=== PATIENT | male | born 1995 | race African-American/Black ===

== ENCOUNTER 2017-03-20 22:58 | Emergency (ER) | payer OTHER ==
[~2017-03-20] VITALS: Ht 210.8 cm; Wt 119.3 kg
[~2017-03-20 22:58] MED LIST: HYDR-79 PO; ONDA8TAB12 PO; RANI150T6 PO
[2017-03-20 23:00] VITALS: BP 167/85
--- NOTE | 2017-03-20 23:56 | PHYS DOC ---
General Chief Complaint: BACK PAIN OR INJURY Stated Complaint: BACK PAIN Time Seen by MD: 23:13 Source: patient Exam Limitations: no limitations Problems: History of Present Illness Initial Comments Patient is a 21-year-old male who comes to the ED complaining of back pain. Patient states that he's been dealing with a lingering back injury for approximately 18 months. He's been following with physical therapy and had a session earlier this week. Patient says that earlier today he was closing a large very heavy gate. He says that as he was doing so he was also twisting his upper body and he felt sudden onset or reaggravation of his right sided mid back pain. Pain is localized to the hypertonic tender paraspinal musculature to the right lateral of the thoracic or lumbar junction. No bony tenderness or palpable deformity no swelling ecchymosis or abrasions or other skin changes. Denies other injury and no trouble breathing no focal weakness. He's tried anti- inflammatories and muscle relaxants in the past however his symptoms remain. Timing/Duration: changing over time, other Severity: moderate Modifying Factors: worse with movement, improves with rest Associated Symptoms: other Allergies: Coded Allergies: No Known Drug Allergies (Unverified , 06/26/16) Past Medical History Medical History: no pertinent history Surgical History: noncontributory Social History Smoker: non-smoker Alcohol: none Drugs: none Review of Systems Constitutional: denies chills, denies diaphoresis, denies fever Respiratory: denies cough, denies shortness of breath Cardiovascular: denies chest pain, denies palpitations Gastrointestinal: denies abdominal pain, denies diarrhea, denies nausea, denies vomiting Genitourinary: denies dysuria, denies frequency, denies hematuria Musculoskeletal: see HPI, denies joint swelling, denies neck pain Psychiatric/Neurological: denies headache, denies numbness, denies paresthesia Hematologic/Lymphatic: denies blood clots, denies easy bleeding, denies easy bruising Physical Exam General Appearance: WD/WN, no apparent distress Ear, Nose, Throat: hearing grossly normal, normal ENT inspection Neck: non-tender, supple Respiratory: normal breath sounds, no respiratory distress Cardiovascular: normal peripheral pulses, regular rate, rhythm Gastrointestinal: non tender, soft Back: no CVA tenderness, no vertebral tenderness, decreased range of motion, muscle spasm Extremities: normal range of motion, non-tender 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 Departure Time of Disposition: 23:54 Disposition: 01 HOME, SELF-CARE Diagnosis: acute on chronic thoracic strain Condition: GOOD Patient Instructions: Thoracic Strain, [id number] Additional Instructions: Activity as tolerated. Heating pad to affected area 20 minutes at a time 4-6 times daily followed by gentle stretching. [id number] Tylenol as needed for baseline discomfort. Prescription: Cyclobenzaprine 10 mg, prednisone 20 mg, take each as directed for 5 days. Consider follow-up with chiropractor or classical osteopathic physician. Follow-up at [facility] next week for recheck. Return to the ED with new or changing symptoms. GIN RAPHAEL DO Mar 20, 2017 23:56
[2017-03-21] MEDS ORDERED: predniSONE 20 MG TABLET PO ONE
[2017-03-21] MEDS ORDERED: KETOROLAC 60 MG/2 ML VIAL. IM ONE
[2017-03-21] MEDS ORDERED: ORPHENADRINE CITRATE 60 MG/2 ML VIAL. IM ONE
== END 2017-03-21 00:20 | disposition home or self-care (01) ==
LOC: ER 22:58
DX: S29.012A Strain of muscle and tendon of back wall of thorax, initial encounter (principal); X50.9XXA Other and unspecified overexertion or strenuous movements or postures, initial encounter; Y93.89 Activity, other specified; Y99.8 Other external cause status; Y92.89 Other specified places as the place of occurrence of the external cause
CPT/HCPCS: 96372; 99284; J1885; J2360; J7512

== ENCOUNTER 2017-03-25 22:57 | Emergency (ER) | payer OTHER ==
[~2017-03-25] VITALS: Ht 185.4 cm; Wt 119.3 kg
--- NOTE | 2017-03-25 23:44 | PHYS DOC ---
Past History Past Medical History: No Pertinent History Past Surgical History: No Surgical History Alcohol Use: None Drug Use: None Adult General Chief Complaint Chief Complaint: TESTICULAR PAIN OR INJURY HPI HPI Patient is a 21 year old male who presents with complaint of right-sided testicular pain. Patient states that he has been having pain off and on for the past 3-4 days, however starting at around 5:00 this evening the patient has been having constant pain to the right testicle. Patient states that the pain feels like sharp and throbbing. Patient currently rates his pain as 8 out of 10. Patient states that the pain radiates up into his lower abdomen. Patient denies nausea, vomiting, fevers. Patient is monogamous and denies any penile discharge or dysuria. The patient is concerned about his symptoms being related to a possible testicular torsion which is why he came to the emergency department for evaluation. Patient has not been able to find anything to help relieve his pain. Patient does state that the pain worsens when testicle is touched as well as the spermatic cord. Review of Systems Review of Systems Constitutional: Denies fever or chills [] Eyes: Denies change in visual acuity, redness, or eye pain [] HENT: Denies nasal congestion or sore throat [] Respiratory: Denies cough or shortness of breath [] Cardiovascular: Denies chest pain or edema [] GI: Denies abdominal pain, nausea, vomiting, bloody stools or diarrhea [] : Right testicular pain, denies dysuria or hematuria [] Musculoskeletal: Denies back pain or joint pain [] Integument: Denies rash or skin lesions [] Neurologic: Denies headache, focal weakness or sensory changes [] Current Medications Current Medications Current Medications Medications (Trade) Dose Ordered Sig/[facility] Start Time Stop Time Status Last Admin Dose Admin Acetaminophen/ Hydrocodone Bitart (Lortab 5/325) 1 tab 1X ONCE 03/25/17 23:45 03/25/17 23:46 UNV Allergies Allergies Allergies Coded Allergies Type Severity Reaction Last Updated Verified No Known Drug Allergies 06/26/16 No Physical Exam Physical Exam Constitutional: Alert, afebrile, appears in mild to moderate discomfort. [] HENT: Normocephalic, atraumatic, bilateral external ears normal, oropharynx moist, no oral exudates, nose normal. [] Eyes: PERRLA, EOMI, conjunctiva normal, no discharge. [] Neck: Normal range of motion, no tenderness, supple, no stridor. [] Cardiovascular:Heart rate regular rhythm, no murmur [] Lungs & Thorax: Bilateral breath sounds clear to auscultation [] Abdomen: Bowel sounds normal, soft, no tenderness, no masses, no pulsatile masses. : Uncircumcised, no visible scrotal swelling, tenderness palpation along testicle in posterior spermatic cord, no palpable inguinal masses, no visible discharge at urethral meatus [] Skin: Warm, dry, no erythema, no rash. [] Back: No tenderness, no CVA tenderness. [] Extremities: No tenderness, no cyanosis, no clubbing, ROM intact, no edema. [] Neurologic: Alert and oriented X 3, normal motor function, normal sensory function, no focal deficits noted. [] Current Patient Data Vital Signs Vital Signs Date Time Temp Pulse Resp B/P (MAP) Pulse Ox O2 Delivery O2 Flow Rate FiO2 03/25/17 23:12 108 20 97 Room Air EKG EKG Not performed [] Radiology/Procedures Radiology/[place] [address] IMAGING REPORT Signed PATIENT: LIBIA HUNTLEY ACCOUNT: [id number] : 1995 LOCATION: ER AGE: 21 SEX: M EXAM STATUS: REG ER ORD. PHYSICIAN: AYANA HERRERA MD REASON: right testicular pain, rule out testicular torsion PROCEDURE: TESTICULAR/SCROTUM INDICATION: Testicular pain. COMPARISON: None. TECHNIQUE: Grayscale, color and spectral doppler ultrasound images obtained of the scrotum. FINDINGS: Right Testicle: 35 x 25 x 19 mm. Vascular flow is identified. Left Testicle: 32 x 24 x 16 mm. Vascular flow is identified. 4 mm left epididymal cyst. IMPRESSION: 1. Vascular flow is identified to the bilateral testicles. Electronically signed by: Rey Ferguson MD (03/26/2017 12:49 AM) [facility] DICTATED AND SIGNED BY: REY FERGUSON MD DATE: 03/26/17 0047 CC: AYANA HERRERA MD; PRAKASH VEGA DO, MPH ~ [] Course & Med Decision Making Course & Med Decision Making Pertinent Labs and Imaging studies reviewed. (See chart for details) Patient was treated with [place] in the emergency department. Patient's exam shows no evidence of inguinal hernia and patient's ultrasound showed normal blood flow and both testicles. UA showed no evidence of infection. Etiology of patient's testicular pain is unclear at this time though it does not appear to be acutely surgical. Patient will be started on Naprosyn and [place] for treatment with recommended follow-up in 2 days a primary doctor for reevaluation. Advised return emergency department for any worsening symptoms. Patient voiced understanding and in agreement with treatment plan. Dragon Disclaimer Dragon Disclaimer This chart was dictated in whole or in part using Voice Recognition software in a busy, high-work load, and often noisy Emergency Department environment. It may contain unintended and wholly unrecognized errors or omissions. Departure Departure: Impression: Primary Impression: Testicular pain, right Disposition: 01 HOME, SELF-CARE Condition: IMPROVED Referrals: PRAKASH VEGA DO, MPH (PCP) Patient Instructions: Testicular Problems and Self-Exam Additional Instructions: Follow-up with your primary doctor in 2-3 days for reevaluation. Return to the emergency department for any worsening symptoms. Scripts Hydrocodone Bit/Acetaminophen (NORCO 5-325 TABLET) 1 Each Tablet 1-2 TAB PO Q4-6HRS Y for PAIN, #20 TAB Prov: AYANA HERRERA MD 03/26/17 Naproxen (NAPROSYN) 500 Mg Tablet 1 TAB PO BID Y for INFLAMMATION, #20 TAB 0 Refills Prov: AYANA HERRERA MD 03/26/17 AYANA HERRERA MD Mar 25, 2017 23:44
[2017-03-26] MEDS ORDERED: HYDR-971 PO (00:46)
[2017-03-26] MEDS ORDERED: NAPR500T PO (00:46)
--- NOTE | 2017-03-26 00:52 | RAD ---
INDICATION: Testicular pain. COMPARISON: None. TECHNIQUE: Grayscale, color and spectral doppler ultrasound images obtained of the scrotum. FINDINGS: Right Testicle: 35 x 25 x 19 mm. Vascular flow is identified. Left Testicle: 32 x 24 x 16 mm. Vascular flow is identified. 4 mm left epididymal cyst. IMPRESSION: 1. Vascular flow is identified to the bilateral testicles. Electronically signed by: Brigido Hackett MD (03/26/2017 12:49 AM) [facility]
[2017-03-26] MEDS ORDERED: NAPROXEN 500 MG TABLET ONE (01:19)
[2017-03-26 01:20] VITALS: BP 137/70
[2017-03-26] MEDS ORDERED: NAPROXEN 500 MG TABLET PO ONE (01:30)
[2017-03-26] MEDS ORDERED: HYDROcodone/APAP 5/325MG 1 TAB TABLET PO ONE ×2 (01:30)
[2017-03-26 03:46] LABS: BILIRUBIN,URINE NEG (NEG); CLARITY,URINE CLEAR; GLUCOSE,URINE NEG (NEG)
[2017-03-26 03:47] LABS: BACTERIA,URINE 0 /HPF (0-FEW); NITRITE,URINE NEG (NEG); RBC,URINE 0 /HPF (0-2); SQUAMOUS EPITHELIAL CELL,UR OCC /LPF; UROBILINOGEN,URINE 0.2 mg/dL (0.2 mg/dL); WBC,URINE RARE /HPF (0-4)
[2017-03-26 03:48] LABS: COLOR,URINE YELLOW
== END 2017-03-26 01:24 | disposition home or self-care (01) ==
LOC: ER 22:57
DX: N50.811 Right testicular pain (principal)
CPT/HCPCS: 76870; 81001; 99284-25; 99285-25

== ENCOUNTER 2017-05-05 14:44 | Emergency (ER) | payer OTHER ==
[~2017-05-05] VITALS: Ht 180.3 cm; Wt 124.7 kg
[~2017-05-05 14:44] MED LIST changes: +HYDR-971 PO; +NAPR500T PO
[2017-05-05] MEDS ORDERED: HYDROcodone/APAP 5/325MG 1 TAB TABLET PO ONE (15:15)
[2017-05-05 16:00] LABS: BILIRUBIN,URINE NEG (NEG); CLARITY,URINE CLEAR; COLOR,URINE YELLOW; GLUCOSE,URINE NEG (NEG); NITRITE,URINE NEG (NEG); UROBILINOGEN,URINE 0.2 mg/dL (0.2 mg/dL)
[2017-05-05 16:01] LABS: BACTERIA,URINE 0 /HPF (0-FEW); RBC,URINE 0 /HPF (0-2); WBC,URINE 0 /HPF (0-4)
[2017-05-05 16:03] VITALS: BP 123/73
--- NOTE | 2017-05-05 16:26 | PHYS DOC ---
Past History Past Medical History: No Pertinent History Past Surgical History: No Surgical History Alcohol Use: None Drug Use: None Adult General Chief Complaint Chief Complaint: TESTICULAR PAIN OR INJURY HPI HPI 21-year-old male presenting to the emergency department today with left testicular pain. The pain is moderate intermittent sharp and without alleviating factors. He reports mild swelling as well. He denies dysuria polyuria. He is sexually active but denies recent exposure to sexually transmitted infections. He denies penile discharge or drainage. He denies rashes or ulcerations. Review of systems is negative for chest pain shortness of breath abdominal pain nausea vomiting. All other review of systems is negative unless otherwise noted in history of present illness. ED course: 21-year-old male presenting to the emergency department today with left testicular pain. Vital signs unremarkable other than mild tachycardia likely secondary to pain. Urinalysis and ultrasound obtained. Pertinent physical examination findings showed the testicle to be in normal orientation. Nontender testicle. Normal cremasteric reflex. No ulcerations or drainage present. No blue dot. Nontender epididymis. Unremarkable ultrasound and urinalysis. I did offer the patient oral doxycycline for possible epididymitis. The patient was then discharged home in stable condition to follow up with their primary care physician over the next 2-3 days. They were to return if their symptoms worsened or if they were concerned for any reason. Kyex-ko-aizu discharge instructions and return precautions were given. Patient's questions were answered to their satisfaction. Patient is comfortable plan. Review of Systems Review of Systems SEE ABOVE Current Medications Current Medications Current Medications Medications (Trade) Dose Ordered Sig/[facility] Start Time Stop Time Status Last Admin Dose Admin Acetaminophen/ Hydrocodone Bitart (Lortab 5/325) 2 tab 1X ONCE 05/05/17 15:15 05/05/17 15:16 DC 05/05/17 15:14 2 TAB Allergies Allergies Allergies Coded Allergies Type Severity Reaction Last Updated Verified No Known Drug Allergies 06/26/16 No Physical Exam Physical Exam Constitutional: Well developed, well nourished, no acute distress, non-toxic appearance. [] HENT: Normocephalic, atraumatic, bilateral external ears normal, oropharynx moist, no oral exudates, nose normal. [] Eyes: PERRLA, EOMI, conjunctiva normal, no discharge. [] Neck: Normal range of motion, no tenderness, supple, no stridor. [] Cardiovascular:Heart rate regular rhythm, no murmur [] Lungs & Thorax: Bilateral breath sounds clear to auscultation [] Abdomen: Bowel sounds normal, soft, no tenderness, no masses, no pulsatile masses. [] : See above Skin: Warm, dry, no erythema, no rash. [] Back: No tenderness, no CVA tenderness. [] Extremities: No tenderness, no cyanosis, no clubbing, ROM intact, no edema. [] Neurologic: Alert and oriented X 3, normal motor function, normal sensory function, no focal deficits noted. [] Psychologic: Affect normal, judgement normal, mood normal. [] Current Patient Data Vital Signs Vital Signs Date Time Temp Pulse Resp B/P (MAP) Pulse Ox O2 Delivery O2 Flow Rate FiO2 05/05/17 16:03 94 12 123/73 (90) 96 Room Air 05/05/17 14:55 97.6 Lab Results Laboratory Tests Test 05/05/17 15:30 Urine Collection Type Void Urine Color Yellow Urine Clarity Clear Urine pH 7.0 Urine Specific [place] 1.015 Urine Protein Neg (NEG-TRACE) Urine Glucose (UA) Neg mg/dL (NEG) Urine Ketones (Stick) Neg mg/dL (NEG) Urine Blood Neg (NEG) Urine Nitrite Neg (NEG) Urine Bilirubin Neg (NEG) Urine Urobilinogen Dipstick 0.2 mg/dL (0.2 mg/dL) Urine Leukocyte Esterase Neg (NEG) Urine RBC 0 /HPF (0-2) Urine WBC 0 /HPF (0-4) Urine Squamous Epithelial Cells None /LPF Urine Bacteria 0 /HPF (0-FEW) EKG EKG [] Radiology/Procedures Radiology/Procedures [] Course & Med Decision Making Course & Med Decision Making Pertinent Labs and Imaging studies reviewed. (See chart for details) [] Dragon Disclaimer Dragon Disclaimer This chart was dictated in whole or in part using Voice Recognition software in a busy, high-work load, and often noisy Emergency Department environment. It may contain unintended and wholly unrecognized errors or omissions. Departure Departure: Impression: Primary Impression: Testicular pain, left Disposition: 01 HOME, SELF-CARE Condition: STABLE Referrals: PRAKASH VEGA DO, MPH (PCP) Patient Instructions: Testicular Problems and Self-Exam Additional Instructions: Thank you for allowing us to participate in your care today. Followup with your primary care physician in 3 days if your symptoms do not improve. Call your Primary Doctor tomorrow and inform them of your visit today. If you do not have a primary care provider you can ask for a list of our primary care providers. Return to the emergency department you have any new or concerning findings. This should be evaluated by the primary care physician and any necessary consulting services for continued management within a few days after discharge. Return to emergency room if you have any new or concerning symptoms including but not limited to fever, chills, nausea, vomiting, intractable pain, any new rashes, chest pain, shortness of air, uncontrolled bleeding, difficulty breathing, and/or vision loss. Scripts Doxycycline Hyclate (DOXYCYCLINE HYCLATE) 100 Mg Capsule 1 CAP PO BID, #14 CAP Prov: DONI SMITH MD 05/05/17 DONI SMITH MD May 05, 2017 16:26
--- NOTE | 2017-05-05 17:08 | RAD ---
INDICATION: Right testicle pain with no known injury. TECHNIQUE: Grayscale, color-flow, and spectral waveform analysis was performed. FINDINGS: Testicles are homogeneous in echotexture with normal color flow that is not increased or decreased. The right testicle measures 3.6 x 1.9 x 2.7 cm and the left 2.9 x 1.8 x 2.6 cm. There is a left epididymal cyst. There is no evidence of an epididymitis. There is no hydrocele or varicocele. IMPRESSION: 1. No evidence of testicular torsion or mass. 2. Left epididymal cyst measures 5 mm. Electronically signed by: Rolf Valencia MD (05/05/2017 5:04 PM) [email or web address]
[2017-05-05] MEDS ORDERED: DOXY100C2 PO (17:43)
== END 2017-05-05 17:45 | disposition home or self-care (01) ==
LOC: ER 14:44
DX: N50.812 Left testicular pain (principal)
CPT/HCPCS: 76870; 81001; 99285-25

== ENCOUNTER 2018-03-04 14:04 | Emergency (ER) | payer OTHER ==
[~2018-03-04] VITALS: Ht 180.3 cm; Wt 127.0 kg
[~2018-03-04 14:04] MED LIST changes: +DOXY100C2 PO; +NAPR-683 PO; -NAPR500T PO; +RANI150T21 PO; -RANI150T6 PO
--- NOTE | 2018-03-04 14:34 | PHYS DOC ---
Past History Past Medical History: No Pertinent History Past Surgical History: Other Alcohol Use: None Drug Use: None Adult General Chief Complaint Chief Complaint: WRIST PAIN HPI HPI The patient is a pleasant 22-year-old male who presents for evaluation of a left wrist injury. He states that he was at the gym weightlifting and was pulling a 45 pound circular weight off of a bar that was elevated with his right arm when he lost control of the weights and it fell onto his left wrist which was on the ground. He initially thought it was more of a minor injury and tried to do a pushup but then felt like something in his wrist or forearm moved and felt a pop and increasing pain. He is alert and oriented 4, calm, appears to be no distress. He was able to drive himself to the emergency department but states that his is also driving here to meet him. He denies any other injuries. Review of Systems Review of Systems Constitutional: Denies fever or chills [] Eyes: Denies change in visual acuity, redness, or eye pain [] HENT: Denies nasal congestion or sore throat [] Respiratory: Denies cough or shortness of breath [] Cardiovascular: No additional information not addressed in HPI [] GI: Denies abdominal pain, nausea, vomiting, bloody stools or diarrhea [] : Denies dysuria or hematuria [] Musculoskeletal: Denies back pain [] left wrist injury Integument: Denies rash or skin lesions [] Neurologic: Denies headache, focal weakness or sensory changes [] Endocrine: Denies polyuria or polydipsia [] All other systems were reviewed and found to be within normal limits, except as documented in this note. Current Medications Current Medications Current Medications Medications (Trade) Dose Ordered Sig/[facility] Start Time Stop Time Status Last Admin Dose Admin Acetaminophen/ Hydrocodone Bitart (Lortab 7.5/325) 1 tab 1X ONCE 03/04/18 14:45 03/04/18 14:46 Allergies Allergies Allergies Coded Allergies Type Severity Reaction Last Updated Verified No Known Drug Allergies 06/26/16 No Physical Exam Physical Exam Constitutional: Well developed, well nourished, no acute distress, non-toxic appearance. [] HENT: Normocephalic, atraumatic, bilateral external ears normal, oropharynx moist, no oral exudates, nose normal. [] Eyes: PERRLA, EOMI, conjunctiva normal, no discharge. [] Neck: Normal range of motion, no tenderness, supple, no stridor. [] Cardiovascular:Heart rate regular rhythm, no murmur [] Lungs & Thorax: Bilateral breath sounds clear to auscultation [] Abdomen: Bowel sounds normal, soft, no tenderness, no masses, no pulsatile masses. [] Skin: Warm, dry, no erythema, no rash. [] Back: No tenderness, no CVA tenderness. [] Extremities: no cyanosis, no clubbing, ROM intact, no edema. [] left distal forearm/wrist ttp, no deformity seen, ROM in supination/pronation as well as flexion/extension at wrist limited slightly by pain, no dislocation, distally normal cap refill, sensation, and strength Neurologic: Alert and oriented X 3, normal motor function, normal sensory function, no focal deficits noted. [] Psychologic: Affect normal, judgement normal, mood normal. [] Current Patient Data Vital Signs Vital Signs Date Time Temp Pulse Resp B/P (MAP) Pulse Ox O2 Delivery O2 Flow Rate FiO2 03/04/18 14:13 97.8 95 16 100 Room Air EKG EKG [] Radiology/Procedures Radiology/Procedures [][place] [address] IMAGING REPORT Signed PATIENT: LIBIA HUNTLEY ACCOUNT: [id number] : 1995 LOCATION: ER AGE: 22 SEX: M EXAM STATUS: REG ER ORD. PHYSICIAN: MONCHO SANCHEZ DO REASON: left distal forearm pain PROCEDURE: FOREARM LEFT Indications: Lifting injury today. Pain. 2 view left forearm study: No acute fracture or dislocation or osteolytic process is seen. No significant left elbow joint effusion is seen. Three-view left wrist study: No acute fracture or dislocation or osteolytic process is seen. Three-view left hand study: No acute fracture or dislocation or osteolytic process is seen. IMPRESSION: No acute fracture. Electronically signed by: Victor Manuel Gustafson MD (03/04/2018 2:56 PM) [email or web address] DICTATED AND SIGNED BY: VICTOR MANUEL GUSTAFSON MD DATE: 03/04/18 2688 CC: MONCHO SANCHEZ DO; PRAKASH VEGA DO, MPH ~ [address] [address] IMAGING REPORT Signed PATIENT: LIBIA HUNTLEY ACCOUNT: [id number] : 1995 LOCATION: ER AGE: 22 SEX: M EXAM STATUS: REG ER ORD. PHYSICIAN: MONCHO SANCHEZ DO REASON: left distal forearm pain PROCEDURE: HAND LEFT 3V Indications: Lifting injury today. Pain. 2 view left forearm study: No acute fracture or dislocation or osteolytic process is seen. No significant left elbow joint effusion is seen. Three-view left wrist study: No acute fracture or dislocation or osteolytic process is seen. Three-view left hand study: No acute fracture or dislocation or osteolytic process is seen. IMPRESSION: No acute fracture. Electronically signed by: Victor Manuel Gustafson MD (03/04/2018 2:56 PM) [email or web address] DICTATED AND SIGNED BY: VICTOR MANUEL GUSTAFSON MD DATE: 03/04/18 1454 CC: MNOCHO SANCHEZ DO; PRAKASH VEGA DO, MPH [address] [address] IMAGING REPORT Signed PATIENT: LIBIA HUNTLEY ACCOUNT: [id number] : 1995 LOCATION: ER AGE: 22 SEX: M EXAM STATUS: REG ER ORD. PHYSICIAN: MONCHO SANCHEZ DO REASON: left distal forearm pain PROCEDURE: WRIST 3V LEFT Indications: Lifting injury today. Pain. 2 view left forearm study: No acute fracture or dislocation or osteolytic process is seen. No significant left elbow joint effusion is seen. Three-view left wrist study: No acute fracture or dislocation or osteolytic process is seen. Three-view left hand study: No acute fracture or dislocation or osteolytic process is seen. IMPRESSION: No acute fracture. Electronically signed by: Victor Manuel Gustafson MD (03/04/2018 2:56 PM) [email or web address] DICTATED AND SIGNED BY: VICTOR MANUEL GUSTAFSON MD DATE: 03/04/18 1454 CC: MONCHO SANCHEZ DO; PRAKASH VEGA DO, MPH ~ Course & Med Decision Making Course & Med Decision Making Pertinent Labs and Imaging studies reviewed. (See chart for details) @1500 - x-rays performed today did not show any acute fracture. Splint applied to wrist for stability and comfort. Advised patient to limit any lifting over 10 pounds with the right upper extremity until his symptoms have resolved. He is stable for discharge this time. Dragon Disclaimer Dragon Disclaimer This electronic medical record was generated, in whole or in part, using a voice recognition dictation system. Departure Departure: Impression: Primary Impression: Contusion of wrist, left Disposition: 01 HOME, SELF-CARE Condition: STABLE Referrals: PRAKASH VEGA DO, MPH (PCP) Patient Instructions: Contusion Additional Instructions: No lifting over 10 pounds with left arm until your symptoms resolve. Keep the splint in place. Return to the emergency department for new or worsening symptoms. Follow-up with your doctor in the next 2-3 days. Scripts Hydrocodone Bit/Acetaminophen (NORCO 5-325 TABLET) 1 Each Tablet 1-2 TAB PO Q4-6HRS, #15 TAB Prov: MONCHO SANCHEZ DO 03/04/18 MONCHO SANCHEZ DO Mar 04, 2018 14:34
[2018-03-04] MEDS ORDERED: HYDROcodone/APAP 7.5/325MG 1 TAB TABLET PO ONE (14:45)
--- NOTE | 2018-03-04 15:00 | RAD ---
Indications: Lifting injury today. Pain. 2 view left forearm study: No acute fracture or dislocation or osteolytic process is seen. No significant left elbow joint effusion is seen. Three-view left wrist study: No acute fracture or dislocation or osteolytic process is seen. Three-view left hand study: No acute fracture or dislocation or osteolytic process is seen. IMPRESSION: No acute fracture. Electronically signed by: David Gustafson MD (03/04/2018 2:56 PM) [email or web address]
[2018-03-04] MEDS ORDERED: HYDR-971 PO (15:07)
[2018-03-04 15:15] VITALS: BP 121/81
== END 2018-03-04 15:20 | disposition home or self-care (01) ==
LOC: ER 14:04
DX: S60.212A Contusion of left wrist, initial encounter (principal); W20.8XXA Other cause of strike by thrown, projected or falling object, initial encounter; Y93.B3 Activity, free weights; Y99.8 Other external cause status; Y92.89 Other specified places as the place of occurrence of the external cause
CPT/HCPCS: 29125; 73090; 73110; 73130; 99284

== ENCOUNTER 2018-06-02 13:41 | Emergency (ER) | payer OTHER ==
[~2018-06-02] VITALS: Ht 182.9 cm; Wt 122.5 kg
[2018-06-02 13:41] VITALS: BP 148/91
--- NOTE | 2018-06-02 14:29 | RAD ---
Chest, 2 views, 06/02/2018: HISTORY: Cough, fever The heart size is normal. The lungs are clear. There is no evidence of pleural fluid. IMPRESSION: No significant abnormality is detected. Electronically signed by: Kamlesh Villa MD (06/02/2018 2:25 PM) [facility]
[2018-06-02] MEDS ORDERED: ONDANSETRON ODT 4 MG TAB.RAPDIS PO ONE (14:30)
[2018-06-02] MEDS ORDERED: IBUPROFEN 600 MG TABLET. PO ONE (14:30)
--- NOTE | 2018-06-02 15:04 | PHYS DOC ---
Past History Past Medical History: No Pertinent History Past Surgical History: No Surgical History Alcohol Use: None Drug Use: None Adult General Chief Complaint Chief Complaint: FLU SYMPTOM HPI HPI 22-year-old male presents with 4 day history of cough, congestion, sore throat, and muscle aches. The patient's symptoms started with a mild sore throat. He then developed congestion and a cough. He is not coughing anything up. Today he has diffuse body aches and has been nauseous. He had one episode of vomiting. He denies diarrhea. He denies dysuria or urinary frequency. He came in today because he has a new infant at home and does not want to get the baby sick. Review of Systems Review of Systems Constitutional: Denies fever or chills [] Eyes: Denies change in visual acuity, redness, or eye pain [] HENT: Denies nasal congestion or sore throat [] Respiratory: Denies cough or shortness of breath [] Cardiovascular: No additional information not addressed in HPI [] GI: Denies abdominal pain, nausea, vomiting, bloody stools or diarrhea [] : Denies dysuria or hematuria [] Musculoskeletal: Denies back pain or joint pain [] Integument: Denies rash or skin lesions [] Neurologic: Denies headache, focal weakness or sensory changes [] Endocrine: Denies polyuria or polydipsia [] All other systems were reviewed and found to be within normal limits, except as documented in this note. Current Medications Current Medications Current Medications Medications (Trade) Dose Ordered Sig/Maddy Start Time Stop Time Status Last Admin Dose Admin Ibuprofen (Motrin) 600 mg 1X ONCE 06/02/18 14:30 06/02/18 14:31 DC 06/02/18 14:29 600 MG Ondansetron HCl (Zofran Odt) 4 mg 1X ONCE 06/02/18 14:30 06/02/18 14:31 DC 06/02/18 14:29 4 MG Allergies Allergies Allergies Coded Allergies Type Severity Reaction Last Updated Verified No Known Drug Allergies 06/26/16 No Physical Exam Physical Exam Constitutional: Well developed, well nourished, no acute distress, non-toxic appearance. [] HENT: Normocephalic, atraumatic, bilateral external ears normal, oropharynx moist, no oral exudates, nose normal. [] Eyes: PERRLA, EOMI, conjunctiva normal, no discharge. [] Neck: Normal range of motion, no tenderness, supple, no stridor. [] Cardiovascular:Heart rate regular rhythm, no murmur [] Lungs & Thorax: Bilateral breath sounds clear to auscultation [] Abdomen: Bowel sounds normal, soft, no tenderness, no masses, no pulsatile masses. [] Skin: Warm, dry, no erythema, no rash. [] Back: No tenderness, no CVA tenderness. [] Extremities: No tenderness, no cyanosis, no clubbing, ROM intact, no edema. [] Neurologic: Alert and oriented X 3, normal motor function, normal sensory function, no focal deficits noted. [] Psychologic: Affect normal, judgement normal, mood normal. [] Current Patient Data Vital Signs Vital Signs Date Time Temp Pulse Resp B/P (MAP) Pulse Ox O2 Delivery O2 Flow Rate FiO2 06/02/18 13:41 98.1 104 20 99 Room Air Lab Results Laboratory Tests Test 06/02/18 14:01 Group A Streptococcus Rapid Negative (NEGATIVE) EKG EKG [] Radiology/Procedures Radiology/Procedures [] Course & Med Decision Making Course & Med Decision Making Pertinent Labs and Imaging studies reviewed. (See chart for details) The patient's rapid strep is negative. His chest x-ray is unremarkable. With the patient just has a viral illness. I will discharge him with Zofran and advised that he minimize contact with the baby, wash his hands frequently, and get some rest. [] Dragon Disclaimer Dragon Disclaimer This electronic medical record was generated, in whole or in part, using a voice recognition dictation system. Departure Departure: Referrals: PRAKSAH VEGA DO, MPH (PCP) LAURA ELAM DO Jun 02, 2018 15:04
[2018-06-02] MEDS ORDERED: ONDA4TAB10 SL (15:07)
== END 2018-06-02 15:14 | disposition home or self-care (01) ==
LOC: ER 13:41
DX: B34.9 Viral infection, unspecified (principal)
CPT/HCPCS: 71046; 87070; 87880; 99285; Q0162

== ENCOUNTER 2019-01-22 08:38 | Emergency (ER) | payer OTHER ==
[~2019-01-22] VITALS: Ht 182.9 cm; Wt 118.8 kg
[~2019-01-22 08:38] MED LIST changes: +HYDR-1179 PO; +HYDR-3165 PO; -HYDR-79 PO; -HYDR-971 PO; +ONDA4TAB10 SL
[2019-01-22 08:48] VITALS: BP 133/83
[2019-01-22] MEDS ORDERED: ALBU2.5V8 INH (09:04)
[2019-01-22] MEDS ORDERED: PRED50TA PO (09:04)
--- NOTE | 2019-01-22 09:05 | PHYS DOC ---
Past History Past Medical History: No Pertinent History Past Surgical History: No Surgical History Alcohol Use: None Drug Use: None Adult General Chief Complaint Chief Complaint: SHORTNESS OF BREATH [facility] HPI Patient is a 23 year old M who presents with shortness of breath. He states this started this morning after he got off work. He reports wheezing and a cough that is productive with green mucus. He states that 1 week ago he had URI that has since resolved. He denies fever, chills, allergies, or a history of asthma. Review of Systems Review of Systems Constitutional: Denies fever or chills [] Eyes: Denies change in visual acuity, redness, or eye pain [] HENT: Denies nasal congestion or sore throat [] Respiratory: Reports cough or shortness of breath [] Cardiovascular: No additional information not addressed in HPI [] GI: Denies abdominal pain, nausea, vomiting, bloody stools or diarrhea [] : Denies dysuria or hematuria [] Musculoskeletal: Denies back pain or joint pain [] Integument: Denies rash or skin lesions [] Neurologic: Denies headache, focal weakness or sensory changes [] Endocrine: Denies polyuria or polydipsia [] All other systems were reviewed and found to be within normal limits, except as documented in this note. Allergies Allergies Allergies Coded Allergies Type Severity Reaction Last Updated Verified No Known Drug Allergies 06/26/16 No Physical Exam Physical Exam Constitutional: Well developed, well nourished, no acute distress, non-toxic appearance. [] HENT: Normocephalic, atraumatic, bilateral external ears normal, oropharynx moist, no oral exudates, nose normal. [] Eyes: PERRLA, EOMI, conjunctiva normal, no discharge. [] Neck: Normal range of motion, no tenderness, supple, no stridor. [] Cardiovascular:Heart rate regular rhythm, no murmur [] Lungs & Thorax: Bilateral breath sounds clear to auscultation [] Abdomen: Bowel sounds normal, soft, no tenderness, no masses, no pulsatile masses. [] Skin: Warm, dry, no erythema, no rash. [] Back: No tenderness, no CVA tenderness. [] Extremities: No tenderness, no cyanosis, no clubbing, ROM intact, no edema. [] Neurologic: Alert and oriented X 3, normal motor function, normal sensory function, no focal deficits noted. [] Psychologic: Affect normal, judgement normal, mood normal. [] EKG EKG [] Radiology/Procedures Radiology/Procedures [] Course & Med Decision Making Course & Med Decision Making Pertinent Labs and Imaging studies reviewed. (See chart for details) []Likely reactive cough chest x-ray negative prednisone and albuterol were given patient is well-appearing Dragon Disclaimer Dragon Disclaimer This electronic medical record was generated, in whole or in part, using a voice recognition dictation system. Departure Departure: Impression: Primary Impression: Bronchitis Disposition: HOME, SELF-CARE Condition: STABLE Referrals: PRAKASH TOLEDO PA-C (PCP) Scripts Albuterol Sulfate (PROAIR HFA INHALER) 8.5 Gm Hfa.aer.ad 1 PUFF INH PRN Q6HRS PRN for SHORTNESS OF BREATH, #1 INHALER 0 Refills Prov: WANDER PHILLIPS MD 01/22/19 Prednisone (PREDNISONE) 50 Mg Tablet 1 TAB PO DAILY for cough, #5 TAB Prov: WANDER PHILLIPS MD 01/22/19 WANDER PHILLIPS MD January 22, 2019 09:05
--- NOTE | 2019-01-22 09:23 | RAD ---
EXAM: AP View of the chest DATE: 01/22/2019 9:03 AM INDICATION: Cough, shortness of breath, wheezing COMPARISON: 06/02/2018 FINDINGS: The heart is not enlarged. Mediastinal and hilar contours are normal. No focal parenchymal airspace opacity. No pleural effusion or pneumothorax. IMPRESSION: 1. No radiographic evidence for acute cardiopulmonary process. Electronically signed by: Dakota Verdin MD (01/22/2019 9:19 AM) [id number]
== END 2019-01-22 09:26 | disposition home or self-care (01) ==
LOC: ER 08:38
DX: J40 Bronchitis, not specified as acute or chronic (principal)
CPT/HCPCS: 71045; 99283

== ENCOUNTER 2019-03-18 19:09 | Emergency (ER) | payer OTHER ==
[~2019-03-18] VITALS: Ht 335.3 cm; Wt 118.8 kg
[~2019-03-18 19:09] MED LIST changes: +ALBU2.5V8 INH; +PRED50TA PO; +RANI-376 PO; -RANI150T21 PO
[2019-03-18] MEDS ORDERED: KETOROLAC 15 MG/ML VIAL. IV ONE (19:30)
[2019-03-18] MEDS ORDERED: KETOROLAC 15 MG/ML VIAL. ONE (19:38)
[2019-03-18] MEDS: KETOROLAC 15 MG/ML VIAL. IM ONE (19:44)
--- NOTE | 2019-03-18 19:49 | PHYS DOC ---
Past History Past Medical History: Other Additional Past Medical Histor: undergoing a workup for anemia and chronic pain issues Past Surgical History: No Surgical History Smoking: Non-smoker Alcohol Use: None Drug Use: None Adult General Chief Complaint Chief Complaint: TESTICULAR PAIN OR INJURY HPI HPI Patient is a 23-year-old male presents with right testicular pain that started approximately an hour prior to arrival. Denies any trauma. Has been having intermittent pain for the past several days. Pain is moderate. Denies any swelling. Denies any urethral discharge or dysuria. No fever. Previous workup for this discomfort has been inconclusive and the pain result on its own. Patient due to other chronic pain issues took a tramadol an hour prior to the onset of pain and reports that the tramadol does not seem to be helping with his current pain. Reports that the pain is moderate to severe and describes it as being "kicked in the nuts."[] Review of Systems Review of Systems Constitutional: Denies fever or chills [] Eyes: Denies change in visual acuity, redness, or eye pain [] HENT: Denies nasal congestion or sore throat [] Respiratory: Denies cough or shortness of breath [] Cardiovascular: No chest pain or palpitations[] GI: Denies abdominal pain, nausea, vomiting, bloody stools or diarrhea [] : Denies dysuria or hematuria [] Musculoskeletal: Denies back pain or joint pain [] Integument: Denies rash or skin lesions [] Neurologic: Denies headache, focal weakness or sensory changes [] Endocrine: Denies polyuria or polydipsia [] All other systems were reviewed and found to be within normal limits, except as documented in this note. Current Medications Current Medications Current Medications Medications (Trade) Dose Ordered Sig/[facility] Start Time Stop Time Status Last Admin Dose Admin Ketorolac Tromethamine (Toradol 15mg Vial) 15 mg 1X ONCE 03/18/19 19:30 03/18/19 19:31 UNV Allergies Allergies Allergies Coded Allergies Type Severity Reaction Last Updated Verified No Known Drug Allergies 06/26/16 No Physical Exam Physical Exam Constitutional: Well developed, well nourished, no acute distress, non-toxic appearance. [] HENT: Normocephalic, atraumatic, bilateral external ears normal, oropharynx moist, no oral exudates, nose normal. [] Eyes: PERRLA, EOMI, conjunctiva normal, no discharge. [] Neck: Normal range of motion, no tenderness, supple, no stridor. [] Cardiovascular:Heart rate regular rhythm, no murmur [] Lungs & Thorax: Bilateral breath sounds clear to auscultation [] Abdomen: Bowel sounds normal, soft, no tenderness, no masses, no pulsatile masses. : Normal male with bilaterally descended testes. Diffuse tenderness of the right testicle. Normal lie of the testicle. No hernia on either side. Circumcised. No urethral drainage. No skin lesions noted.[] Skin: Warm, dry, no erythema, no rash. [] Back: No tenderness, no CVA tenderness. [] Extremities: No tenderness, no cyanosis, no clubbing, ROM intact, no edema. [] Neurologic: Alert and oriented X 3, normal motor function, normal sensory function, no focal deficits noted. [] Psychologic: Affect normal, judgement normal, mood normal. [] Current Patient Data Vital Signs Vital Signs Date Time Temp Pulse Resp B/P (MAP) Pulse Ox O2 Delivery O2 Flow Rate FiO2 03/18/19 19:17 98.2 97 14 96 Room Air EKG EKG [] Radiology/Procedures Radiology/Procedures PROCEDURE: TESTICULAR/SCROTUM Scrotal ultrasound 03/18/2019 CLINICAL HISTORY: Right scrotal pain. TECHNIQUE: Using a combination of real-time ultrasound imaging and color-flow and pulse Doppler imaging techniques, duplex evaluation of the scrotal sac and its contents was performed. Multiple images were obtained. FINDINGS: Both testicles are within normal limits in size and echogenicity. The right testicle measures 3.6 x 2.6 x 2.1 cm in longitudinal, transverse, and AP dimensions. The left testicle measures 3.1 x 2.9 x 1.5 cm in size. No focal abnormality of either testicle is seen. Normal color-flow and pulse Doppler imaging to both testicles is noted. The right epididymal head is normal in size and echogenicity. The left epididymal head is normal in size. A 5 mm cyst is seen within the left epididymal head. No hydrocele is seen. A small varicocele is seen inferior to the right testicle. This measures 2 cm in greatest diameter. IMPRESSION: 1. 5 mm cyst is seen involving the left epididymal head. 2. Small right varicocele. 3. Otherwise negative study.[] Course & Med Decision Making Course & Med Decision Making Pertinent Labs and Imaging studies reviewed. (See chart for details) ED course: Patient arrived, was placed in bed, and tolerated exam well. He was transported to and from radiology with any complications. After return of laboratory and imaging studies, these were discussed with the patient who voiced understanding. All questions were answered. He was discharged in improved condition with his driving. Medical decision making: There is no evidence of a torsion, urinary tract infection, hernia, nor other significant intra-abdominal or scrotal pathology.[] Dragon Disclaimer Dragon Disclaimer This electronic medical record was generated, in whole or in part, using a voice recognition dictation system. Departure Departure: Impression: Primary Impression: Testicular pain, right Disposition: HOME, SELF-CARE Condition: IMPROVED Referrals: PRAKSAH TOLEDO PA-C (PCP) Follow-up in 2 days [facility] Call tomorrow to set up follow-up appointment Patient Instructions: Testicular Problems and Self-Exam Additional Instructions: Drink plenty of fluids. Follow-up with your regular doctor in 2 days. Call the urology group tomorrow to set follow-up appointment. Return to the ER if worsening pain, blood in the urine, fever of more than 101, or any other concerns. Scripts Doxycycline Hyclate (DOXYCYCLINE HYCLATE) 100 Mg Tablet 1 TAB PO BID for , #20 TAB Prov: BOZENA GILL DO 03/18/19 Hydrocodone Bit/Acetaminophen (NORCO 5-325 TABLET) 1 Each Tablet 1-2 TAB PO Q4-6HRS for severe pain, #20 TAB Prov: BOZENA GILL DO 03/18/19 Meloxicam (MELOXICAM) 7.5 Mg Tablet 7.5 MG PO DAILY for PAIN, #20 TAB Prov: BOZENA GILL DO 03/18/19 BOZENA GILL DO Mar 18, 2019 19:49
[2019-03-18 20:01] LABS: BACTERIA,URINE 0 /HPF (0-FEW); BILIRUBIN,URINE NEG (NEG); CLARITY,URINE CLEAR; COLOR,URINE YELLOW; GLUCOSE,URINE NEG (NEG); NITRITE,URINE NEG (NEG); RBC,URINE 0 /HPF (0-2); SQUAMOUS EPITHELIAL CELL,UR OCC /LPF; UROBILINOGEN,URINE 0.2 mg/dL (0.2 mg/dL); WBC,URINE OCC /HPF (0-4)
--- NOTE | 2019-03-18 20:53 | RAD ---
Scrotal ultrasound 03/18/2019 CLINICAL HISTORY: Right scrotal pain. TECHNIQUE: Using a combination of real-time ultrasound imaging and color-flow and pulse Doppler imaging techniques, duplex evaluation of the scrotal sac and its contents was performed. Multiple images were obtained. FINDINGS: Both testicles are within normal limits in size and echogenicity. The right testicle measures 3.6 x 2.6 x 2.1 cm in longitudinal, transverse, and AP dimensions. The left testicle measures 3.1 x 2.9 x 1.5 cm in size. No focal abnormality of either testicle is seen. Normal color-flow and pulse Doppler imaging to both testicles is noted. The right epididymal head is normal in size and echogenicity. The left epididymal head is normal in size. A 5 mm cyst is seen within the left epididymal head. No hydrocele is seen. A small varicocele is seen inferior to the right testicle. This measures 2 cm in greatest diameter. IMPRESSION: 1. 5 mm cyst is seen involving the left epididymal head. 2. Small right varicocele. 3. Otherwise negative study. Electronically signed by: Korey Maradiaga MD (03/18/2019 8:50 PM) [facility]
[2019-03-18] MEDS ORDERED: MELO7.5T29 PO (21:05)
[2019-03-18] MEDS ORDERED: DOXY100T PO (21:05)
[2019-03-18] MEDS ORDERED: HYDR-3165 PO (21:05)
[2019-03-18 21:28] VITALS: BP 118/81
[2019-03-18] MEDS: HYDROcodone/APAP 5/325MG 1 TAB TABLET PO ONE (21:30)
== END 2019-03-18 21:33 | disposition home or self-care (01) ==
LOC: ER 19:09
DX: N50.811 Right testicular pain (principal); I86.1 Scrotal varices; N50.3 Cyst of epididymis; G89.29 Other chronic pain; Z86.2 Personal history of diseases of the blood and blood-forming organs and certain disorders involving the immune mechanism
CPT/HCPCS: 76870; 81001; 87491; 87591; 96372; 99285; J1885

== ENCOUNTER 2019-04-08 16:37 | Emergency (ER) | payer OTHER ==
[~2019-04-08] VITALS: Ht 335.3 cm; Wt 128.2 kg
[~2019-04-08 16:37] MED LIST changes: +DOXY100T PO; +MELO7.5T29 PO
[2019-04-08 16:51] VITALS: BP 141/83
[2019-04-08] MEDS ORDERED: KETOROLAC 15 MG/ML VIAL. IV ONE (17:15)
--- NOTE | 2019-04-08 17:19 | PHYS DOC ---
Past History Past Medical History: No Pertinent History Additional Past Medical Histor: undergoing a workup for anemia and chronic pain issues (BOZENA GILL DO) Past Surgical History: No Surgical History (BOZENA GILL DO) Smoking: Non-smoker Alcohol Use: None Drug Use: None (BOZENA GILL DO) Adult General Chief Complaint Chief Complaint: TESTICULAR PAIN OR INJURY HPI HPI Patient is a 23-year-old male presents with right testicular pain for the past 4 hours. He has previous history of this without any specific diagnosis being reached. No previous history of torsion. No dysuria. No hematuria. No trauma. Nothing seems to make the symptoms better or worse. Patient had taken one of his usual tramadol tablets for other issues around the time of onset of this pain without any improvement in this discomfort. Pain is moderate to severe in intensity.[] (BOZENA GILL DO) Review of Systems Review of Systems Constitutional: Denies fever or chills [] Eyes: Denies change in visual acuity, redness, or eye pain [] HENT: Denies nasal congestion or sore throat [] Respiratory: Denies cough or shortness of breath [] Cardiovascular: No chest pain or palpitations[] GI: Denies abdominal pain, nausea, vomiting, bloody stools or diarrhea [] : See history of present illness[] Musculoskeletal: Denies back pain or joint pain [] Integument: Denies rash or skin lesions [] Neurologic: Denies headache, focal weakness or sensory changes [] Endocrine: Denies polyuria or polydipsia [] All other systems were reviewed and found to be within normal limits, except as documented in this note. (BOZENA GILL DO) Current Medications Current Medications Current Medications Medications (Trade) Dose Ordered Sig/Maddy Start Time Stop Time Status Last Admin Dose Admin Ketorolac Tromethamine (Toradol 15mg Vial) 15 mg 1X ONCE 04/08/19 17:15 04/08/19 17:16 UNV (BOZENA GILL DO) Allergies Allergies Allergies Coded Allergies Type Severity Reaction Last Updated Verified No Known Drug Allergies 06/26/16 No (BOZENA GILL DO) Physical Exam Physical Exam Constitutional: Well developed, well nourished, mild discomfort, non-toxic appearance. [] HENT: Normocephalic, atraumatic, bilateral external ears normal, oropharynx moist, no oral exudates, nose normal. [] Eyes: PERRLA, EOMI, conjunctiva normal, no discharge. [] Neck: Normal range of motion, no tenderness, supple, no stridor. [] Cardiovascular:Heart rate regular rhythm, no murmur [] Lungs & Thorax: Bilateral breath sounds clear to auscultation [] Abdomen: Bowel sounds normal, soft, no tenderness, no masses, no pulsatile masses. : Normal male with bilateral descended testes. Tenderness to palpation along the posterior aspect of both left and right testicle. Normal cremasteric reflex. No hernia. No urethral discharge. He is circumcised. [] Skin: Warm, dry, no erythema, no rash. [] Back: No tenderness, no CVA tenderness. [] Extremities: No tenderness, no cyanosis, no clubbing, ROM intact, no edema. [] Neurologic: Alert and oriented X 3, normal motor function, normal sensory function, no focal deficits noted. [] Psychologic: Affect normal, judgement normal, mood normal. [] ([facility] Current Patient Data Vital Signs Vital Signs Date Time Temp Pulse Resp B/P (MAP) Pulse Ox O2 Delivery O2 Flow Rate FiO2 04/08/19 16:51 98.2 108 16 98 Room Air ([facility]) EKG EKG [] ([facility] Radiology/Procedures Radiology/Procedures PROCEDURE: TESTICULAR/SCROTUM INDICATION: Testicular pain. COMPARISON: March 18, 2019 TECHNIQUE: Grayscale, color and spectral doppler ultrasound images obtained of the scrotum. FINDINGS: Right Testicle: 38 x 27 x 19 mm. Vascular flow is identified. Left Testicle: 28 x 26 x 16 mm. Vascular flow is identified. There is a couple of small epididymal cyst measuring up to 5 mm on the left and 1 mm on the right. IMPRESSION: 1. Vascular flow is identified to the bilateral testicles. 2. Epididymal cysts.[] ([facility] Impressions: PROCEDURE: TESTICULAR/SCROTUM INDICATION: Testicular pain. COMPARISON: March 18, 2019 TECHNIQUE: Grayscale, color and spectral doppler ultrasound images obtained of the scrotum. FINDINGS: Right Testicle: 38 x 27 x 19 mm. Vascular flow is identified. Left Testicle: 28 x 26 x 16 mm. Vascular flow is identified. There is a couple of small epididymal cyst measuring up to 5 mm on the left and 1 mm on the right. IMPRESSION: 1. Vascular flow is identified to the bilateral testicles. 2. Epididymal cysts. Electronically signed by: Brigido Hackett MD (04/08/2019 5:53 PM) [facility] (CIARAN RONQUILLO Jr. DO) Course & Med Decision Making Course & Med Decision Making Pertinent Labs and Imaging studies reviewed. (See chart for details) ED course: Patient arrived, was placed in bed, tolerated exam well. He was transported to ultrasound without any complications. Pain medication was adm inistered. Patient care endorsed to the nighttime physician at 1800 with laboratory testing pending.[] (BOZENA GILL DO) Dragon Disclaimer Dragon Disclaimer This electronic medical record was generated, in whole or in part, using a voice recognition dictation system. (BOZENA GILL DO) Departure Departure: Impression: Primary Impression: Testicular pain Disposition: HOME, SELF-CARE Condition: STABLE Referrals: QUIANA POSEY (PCP) Patient Instructions: Testicular Problems and Self-Exam Scripts Hydrocodone Bit/Acetaminophen (NORCO 5-325 TABLET) 1 Each Tablet 1 TAB PO PRN Q6HRS PRN for PAIN, #12 TAB 0 Refills Prov: CIARAN RONQUILLO Jr., DO 04/08/19 BOZENA GILL DO Apr 08, 2019 17:19 CIARAN RONQUILLO Jr., DO Apr 08, 2019 18:35
[2019-04-08 17:42] LABS: BACTERIA,URINE 0 /HPF (0-FEW); BILIRUBIN,URINE NEG (NEG); CLARITY,URINE CLEAR; COLOR,URINE YELLOW; GLUCOSE,URINE NEG (NEG); NITRITE,URINE NEG (NEG); RBC,URINE 0 /HPF (0-2); SQUAMOUS EPITHELIAL CELL,UR OCC /LPF; UROBILINOGEN,URINE 0.2 mg/dL (0.2 mg/dL); WBC,URINE 0 /HPF (0-4)
--- NOTE | 2019-04-08 17:56 | RAD ---
INDICATION: Testicular pain. COMPARISON: March 18, 2019 TECHNIQUE: Grayscale, color and spectral doppler ultrasound images obtained of the scrotum. FINDINGS: Right Testicle: 38 x 27 x 19 mm. Vascular flow is identified. Left Testicle: 28 x 26 x 16 mm. Vascular flow is identified. There is a couple of small epididymal cyst measuring up to 5 mm on the left and 1 mm on the right. IMPRESSION: 1. Vascular flow is identified to the bilateral testicles. 2. Epididymal cysts. Electronically signed by: Brigido Hackett MD (04/08/2019 5:53 PM) [facility]
[2019-04-08] MEDS ORDERED: MORPHINE SULFATE 4 MG/ML DISP.SYRIN. IV ONE (18:00)
[2019-04-08 18:10] LABS: BASO # 0.1 x10^3/uL (0.0-0.2); BASO % 1 % (0-3); EOS # 0.2 x10^3/uL (0.0-0.7); EOS % 3 % (0-3); HEMATOCRIT 49.3 % (39.0-53.0); HEMOGLOBIN 16.1 g/dL (13.0-17.5); LYMPH # 2.6 x10^3/uL (1.0-4.8); LYMPH % 37 % (24-48); MEAN CORPUSCULAR HEMOGLOBIN 26 pg (25-35); MEAN CORPUSCULAR HGB CONC 33 g/dL (31-37); MEAN CORPUSCULAR VOLUME 78 fL (79-100); MONO # 0.6 x10^3/uL (0.0-1.1); MONO % 9 % (0-9); NEUT # 3.6 x10^3uL (1.8-7.7); NEUT % 50 % (31-73); PLATELET COUNT 275 x10^3/uL (140-400); RED BLOOD COUNT 6.29 x10^6/uL (4.30-5.70); WHITE BLOOD COUNT 7.1 x10^3/uL (4.0-11.0)
[2019-04-08 18:20] LABS: CALCIUM 9.4 mg/dL (8.5-10.1); GFR 110.2; POTASSIUM 4.4 mmol/L (3.5-5.1)
[2019-04-08] MEDS ORDERED: HYDR-3165 PO (18:34)
== END 2019-04-08 18:39 | disposition home or self-care (01) ==
LOC: ER 16:37
DX: N50.811 Right testicular pain (principal); N50.3 Cyst of epididymis; G89.29 Other chronic pain; Z86.2 Personal history of diseases of the blood and blood-forming organs and certain disorders involving the immune mechanism
CPT/HCPCS: 36415; 76870; 80048; 81001; 85025; 87491; 87591; 96374; 96375; 99285; J1885; J2270

== ENCOUNTER 2019-06-30 11:45 | Emergency (ER) | payer OTHER ==
[~2019-06-30] VITALS: Ht 182.9 cm; Wt 134.0 kg
[2019-06-30 11:55] VITALS: BP 150/71
[2019-06-30] MEDS ORDERED: HYDR-3165 PO (12:21)
--- NOTE | 2019-06-30 12:21 | PHYS DOC ---
Past History Past Medical History: COPD, Other Additional Past Medical Histor: undergoing a workup for anemia and chronic pain issues Past Surgical History: No Surgical History Smoking: Non-smoker Alcohol Use: None Drug Use: None Adult General Chief Complaint Chief Complaint: BACK INJURY HPI HPI 23-year-old male presents with report of acute on chronic back pain primarily to the left lumbar region. Patient reports he initially had problems with his back after falling off of a [employer] in 2014. Patient reports he has had significant imaging for his issues and has been on several different types of medication. Patient reports he presents to the ER today for help with pain control until he can follow with his doctors. Patient denies recent trauma. Denies rash. Denies loss of bowel or bladder. Review of Systems Review of Systems Constitutional: Denies fever or chills Eyes: Denies redness or eye pain HENT: Denies nasal congestion or sore throat Respiratory: Denies cough or shortness of breath Cardiovascular: Denies chest pain or palpitations GI: Denies abdominal pain, nausea, or vomiting : Denies dysuria or hematuria Musculoskeletal: Reports back pain with radiation down left leg Integument: Denies rash or skin lesions Neurologic: Denies headache, focal weakness or sensory changes Complete systems were reviewed and found to be within normal limits, except as documented in this note. Allergies Allergies Allergies Coded Allergies Type Severity Reaction Last Updated Verified No Known Drug Allergies 06/26/16 No Physical Exam Physical Exam Constitutional: Well developed, well nourished, no acute distress, non-toxic appearance HENT: Normocephalic, atraumatic, oropharynx moist Eyes: PERRL, EOMI, conjunctiva normal, no discharge Neck: Normal range of motion, no tenderness, supple Cardiovascular: Heart rate normal, regular rhythm Lungs & Thorax: Bilateral breath sounds clear to auscultation, no wheezing Abdomen: Soft, no tenderness Skin: Warm, dry, no erythema, no rash Back: Left paraspinal lumbar tenderness, no CVA tenderness Extremities: No tenderness, ROM intact, no edema Neurologic: Alert and oriented X 3, normal motor function, normal sensory function, no focal deficits noted Psychologic: Affect normal, judgement normal Current Patient Data Vital Signs Vital Signs Date Time Temp Pulse Resp B/P (MAP) Pulse Ox O2 Delivery O2 Flow Rate FiO2 06/30/19 11:55 98.2 88 18 96 Room Air EKG EKG [] Radiology/Procedures Radiology/Procedures [] Course & Med Decision Making Course & Med Decision Making Patient presents with history of present illness and physical exam consistent for acute on chronic low back pain. Symptomatic treatment provided. KTR[facility]s report obtained without findings consistent for recently prescribed narcotic pain medication. Patient stable for discharge with outpatient follow-up with PCP. Discussed findings and plan with patient and family, who acknowledge understanding and agreement. Dragon Disclaimer Dragon Disclaimer This electronic medical record was generated, in whole or in part, using a voice recognition dictation system. Departure Departure: Impression: Primary Impression: Acute exacerbation of chronic low back pain Disposition: HOME, SELF-CARE Condition: STABLE Referrals: QUIANA PSOEY (PCP) Patient Instructions: Chronic Back Pain Scripts Hydrocodone Bit/Acetaminophen (NORCO 5-325 TABLET) 1 Each Tablet 0.5-1 TAB PO Q6HRS PRN for PAIN, #12 TAB Prov: KARYN RUDD DO 06/30/19 KARYN RUDD DO Jun 30, 2019 12:21
[2019-06-30] MEDS ORDERED: DEXAMETHASONE 4 MG TABLET ONE (12:24)
[2019-06-30] MEDS ORDERED: ORPHENADRINE CITRATE 60 MG/2 ML VIAL. ONE (12:24)
[2019-06-30] MEDS ORDERED: HYDROcodone/APAP 5/325MG 1 TAB TABLET ONE (12:24)
[2019-06-30] MEDS ORDERED: ORPHENADRINE CITRATE 60 MG/2 ML VIAL. IM ONE (12:45)
[2019-06-30] MEDS ORDERED: HYDROcodone/APAP 5/325MG 1 TAB TABLET PO ONE (12:45)
[2019-06-30] MEDS ORDERED: DEXAMETHASONE 4 MG TABLET PO ONE (12:45)
== END 2019-06-30 12:35 | disposition home or self-care (01) ==
LOC: ER 11:45
DX: G89.29 Other chronic pain (principal); M54.5 Low back pain; J44.9 Chronic obstructive pulmonary disease, unspecified
CPT/HCPCS: 96372; 99283; J2360; J8540

== ENCOUNTER 2019-07-18 05:06 | Emergency (ER) | payer OTHER ==
[~2019-07-18] VITALS: Ht 182.9 cm; Wt 122.5 kg
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
[2019-07-18] MEDS ORDERED: MORPHINE SULFATE 10 MG/ML SYRINGE. SQ ONE ×2 (05:45→07:00)
[2019-07-18] MEDS ORDERED: CONTRAST GIVEN MC PRN (06:00)
[2019-07-18] MEDS ORDERED: IOHEXOL 300 MG/ML 75 ML VIAL. IV ONE (06:00)
[2019-07-18 06:08] LABS: BASO # 0.1 x10^3/uL (0.0-0.2); BASO % 1 % (0-3); EOS % 1 % (0-3); HEMATOCRIT 47.9 % (39.0-53.0); HEMOGLOBIN 15.6 g/dL (13.0-17.5); LYMPH # 1.6 x10^3/uL (1.0-4.8); LYMPH % 27 % (24-48); MEAN CORPUSCULAR HEMOGLOBIN 26 pg (25-35); MEAN CORPUSCULAR HGB CONC 33 g/dL (31-37); MEAN CORPUSCULAR VOLUME 79 fL (79-100); MONO # 0.5 x10^3/uL (0.0-1.1); MONO % 8 % (0-9); NEUT # 3.8 x10^3uL (1.8-7.7); NEUT % 64 % (31-73); PLATELET COUNT 244 x10^3/uL (140-400); RED CELL DISTRIBUTION WIDTH 13.9 % (11.5-14.5); WHITE BLOOD COUNT 5.9 x10^3/uL (4.0-11.0)
[2019-07-18 06:15] LABS: CALCIUM 8.6 mg/dL (8.5-10.1); CREATININE 0.9 mg/dL (0.7-1.3); GFR 124.4
[2019-07-18 06:17] LABS: AMPHETAMINE/METHAMPHETAMINE NEG (NEG); BARBITURATES NEG (NEG); BENZODIAZEPINES NEG (NEG); CANNABINOIDS NEG (NEG); COCAINE NEG (NEG); METHADONE NEG (NEG); OPIATES NEG (NEG); PHENCYCLIDINE NEG (NEG)
[2019-07-18 06:20] LABS: BACTERIA,URINE 0 /HPF (0-FEW); BILIRUBIN,URINE NEG (NEG); CLARITY,URINE CLEAR; COLOR,URINE YELLOW; GLUCOSE,URINE NEG (NEG); NITRITE,URINE NEG (NEG); RBC,URINE 0 /HPF (0-2); SQUAMOUS EPITHELIAL CELL,UR OCC /LPF; UROBILINOGEN,URINE 0.2 mg/dL (0.2 mg/dL)
--- NOTE | 2019-07-18 06:36 | RAD ---
CT lumbar spine with contrast History: Increasing pain recent epidural injection Axial helical images of the lumbar spine were obtained after the administration of 75 mm IV Omni 300 contrast. Axial, coronal and sagittal reconstruction was performed. Findings: The vertebral bodies are aligned. There is no loss of vertebral body stature. Evaluation of the central canal is limited without contrast. There is moderate narrowing of the L3-L4 neuroforamen on the right with loss of fat around the exiting nerve root. There does not appear as severe central stenosis. No abnormal fluid collections. There is no abnormal enhancement. Impression: Right neuroforaminal stenosis at L3-L4. No acute findings. End impression PQRS Compliance Statement: One or more of the following individualized dose reduction techniques were utilized for this examination: 1. Automated exposure control 2. Adjustment of the mA and/or kV according to patient size 3. Use of iterative reconstruction technique Electronically signed by: Naresh Pruitt III, MD (07/18/2019 6:33 AM) [facility]
[2019-07-18] MEDS ORDERED: HYDR-1179 PO ×2 (06:48→07:17)
[2019-07-18 08:00] VITALS: BP 141/85
== END 2019-07-18 08:00 | disposition home or self-care (01) ==
LOC: ER 05:06
DX: G89.29 Other chronic pain (principal); M54.5 Low back pain; M53.3 Sacrococcygeal disorders, not elsewhere classified; M48.062 Spinal stenosis, lumbar region with neurogenic claudication; J44.9 Chronic obstructive pulmonary disease, unspecified
CPT/HCPCS: 36415; 72132; 80048; 80307; 81001; 85025; 85610; 85730; 96372; 96374; 99285; J2060; J2270; Q9967

== ENCOUNTER 2019-08-21 18:24 | Emergency (ER) | payer OTHER ==
[2019-08-21 18:32] VITALS: BP 139/90
[2019-08-21] MEDS ORDERED: PRED20TA PO (18:59)
--- NOTE | 2019-08-21 19:00 | PHYS DOC ---
Past History Past Medical History: COPD, Sciatica, Other Additional Past Medical Histor: undergoing a workup for anemia and chronic pain issues Past Surgical History: No Surgical History Smoking: Non-smoker Alcohol Use: None Drug Use: None Adult General Chief Complaint Chief Complaint: BACK PAIN - NO INJURY HPI HPI Patient is a 23-year-old male who presents to the emergency department for evaluation. He states he has had ongoing back problems for the past 4 years, and reports a flare of his chronic back pain over the past 3 days. He reports pain in his right lower lumbar paraspinal area, with radiation down his right leg. He denies any incontinence, saddle anesthesia, or weakness, although does report some lateral paresthesias in his right lateral thigh. He went to an urgent care a few days ago and received a prescription for gabapentin, which he has been taking along with his tramadol Flexeril without improvement in his symptoms. Movement seems to worsen his pain. There are no alleviating factors to his symptoms. Review of Systems Review of Systems Constitutional: Denies fever or chills [] HENT: Denies nasal congestion or sore throat [] Respiratory: Denies cough or shortness of breath [] GI: Denies abdominal pain, nausea, vomiting, bloody stools or diarrhea [] : Denies dysuria or hematuria [] Musculoskeletal: Denies neck or upper back pain or joint pain [] Integument: Denies rash or skin lesions [] Neurologic: Denies headache, focal weakness or sensory changes [] Allergies Allergies Allergies Coded Allergies Type Severity Reaction Last Updated Verified No Known Drug Allergies 08/21/19 No Physical Exam Physical Exam PHYSICAL EXAM: CONSTITUTIONAL: Well developed, well nourished HEAD: normocephalic, atraumatic EENT: PERRL, EOMI. Conjunctivae normal color, sclerae non-icteric; moist mucous membranes. NECK: Supple, non-tender; no meningismus. LUNGS: Lungs CTA, breathing even and unlabored. Normal air movement. HEART: Regular rate and rhythm, no murmur CHEST: No deformity; non-tender ABDOMEN: The abdomen is soft, and non-tender, no masses or bruits. EXTREM: Normal ROM; no deformity, no calf tenderness. Normal pulses palpable in all extremities. There is no pedal edema. SKIN: No rash; no diaphoresis NEURO: Alert; normal speech and cognition; CN's grossly intact; strength grossly intact without focal deficit. Distal sensation is normal. There is no foot drop. Perineal sensation is normal. Patellar reflexes are 1+ bilaterally. Straight leg raise is positive on the right. BACK: No CVA TTP. There is tenderness to palpation in the right paraspinal muscles of the mid lower lumbar spine, there is no midline vertebral tenderness to palpation to the thoracic or lumbar spine. Current Patient Data Vital Signs Vital Signs Date Time Temp Pulse Resp B/P (MAP) Pulse Ox O2 Delivery O2 Flow Rate FiO2 08/21/19 18:32 97.9 99 18 99 Room Air EKG EKG [] Radiology/Procedures Radiology/Procedures [] Course & Med Decision Making Course & Med Decision Making I discussed adding a steroid to the patient's pain medication, using heating pad, continuing Flexeril, which she has at home, tramadol and gabapentin as needed, and further outpatient follow-up. An MRI would be more diagnostic at this point if necessary, and it does not appear to be emergent at this time. He states he has had a prior back injury in the , but has had no new injuries. Dragon Disclaimer Dragon Disclaimer This electronic medical record was generated, in whole or in part, using a voice recognition dictation system. Departure Departure: Impression: Primary Impression: Sciatica Additional Impression: Low back pain Disposition: 01 HOME, SELF-CARE Condition: STABLE Referrals: PCP,UNKNOWN (PCP) Patient Instructions: Lumbosacral Strain, Sciatica Additional Instructions: Ibuprofen 400-600 mg every 6 hours may help improve your symptoms. Applying a heating pad to the affected area may help improve your symptoms. Scripts Prednisone (PREDNISONE) 20 Mg Tablet 40 MG PO DAILY for - for 5 Days, #10 TAB Prov: IMTIAZ VILLALOBOS MD 08/21/19 Problem Qualifiers IMTIAZ VILLALOBOS MD Aug 21, 2019 18:59
[2019-08-22] MEDS ORDERED: HYDR-1179 PO (19:27)
== END 2019-08-21 19:00 | disposition home or self-care (01) ==
LOC: ER 18:24
DX: M54.41 Lumbago with sciatica, right side (principal); G89.29 Other chronic pain; J44.9 Chronic obstructive pulmonary disease, unspecified
CPT/HCPCS: 99283

== ENCOUNTER 2019-08-22 18:42 | Emergency (ER) | payer OTHER ==
[~2019-08-22 18:42] MED LIST changes: +PRED20TA PO
--- NOTE | 2019-08-22 18:44 | PHYS DOC ---
Past History Past Medical History: COPD, Sciatica, Other Additional Past Medical Histor: undergoing a workup for anemia and chronic pain issues Past Surgical History: No Surgical History Smoking: Non-smoker Alcohol Use: None Drug Use: None Adult General Chief Complaint Chief Complaint: ".. I know I got some problems with my back.. sciatica... but the pain is worse tonight.. and the meds they gave me at [facility] are not cutting it.. I ve already had MRI.. and know I got some disc dz at L4L5.. .. and I am already on prednisone... And Flexeril... .. I am just miserable to night.. 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 Patient has been following at [facility] for his low back pain. MRI approximate 1 month ago showed disc disease at L4 and L5. Patient denies any new trauma. Patient denies any fever or chills. Patient denies any history cancer. Patient denies any history immunosuppression. Patient denies problems with defecation or urination. Patient localizes his pain Lumbar region and radiates down sciatic nerves. Straight leg lift exacerbates pain. There is no midline tenderness. Patient also has medical history of sickle cell trait and bianca thalassemia. Review of Systems Review of Systems Constitutional: Denies fever or chills [] Eyes: Denies change in visual acuity, redness, or eye pain [] HENT: Denies nasal congestion or sore throat [] Respiratory: Denies cough or shortness of breath [] Cardiovascular: No additional information not addressed in [facility] [] GI: Denies abdominal pain, nausea, vomiting, bloody stools or diarrhea [] : Denies dysuria or hematuria [] Musculoskeletal: Complalints of Lumbar back pain and sciatica pain. Integument: Denies rash or skin lesions [] Neurologic: Denies headache, focal weakness or sensory changes [] Endocrine: Denies polyuria or polydipsia [] All other systems were reviewed and found to be within normal limits, except as documented in this note. Family History Family History Noncontributory Current Medications Current Medications See nursing for home medications Allergies Allergies Allergies Coded Allergies Type Severity Reaction Last Updated Verified No Known Drug Allergies 08/21/19 No Physical Exam Physical Exam Constitutional: Well developed, well nourished, moderate acute distress, non- toxic appearance. [] HENT: Normocephalic, atraumatic, bilateral external ears normal, oropharynx moist, no oral exudates, nose normal. [] Eyes: PERRLA, EOMI, conjunctiva normal, no discharge. [] Neck: Normal range of motion, no tenderness, supple, no stridor. [] Cardiovascular:Heart rate regular rhythm, no murmur [] Lungs & Thorax: Bilateral breath sounds clear to auscultation [] Abdomen: Bowel sounds normal, soft, no tenderness, no masses, no pulsatile masses. [] No saddle loss reported. Skin: Warm, dry, no erythema, no rash. [] Back: Para lumbar muscle tenderness, no CVA tenderness. [] Straight. Leg lift exacerbates his lumbar pain. Extremities: No tenderness, no cyanosis, no clubbing, ROM intact, no edema. [] Neurologic: Alert and oriented X 3, normal motor function, normal sensory function, no focal deficits noted. [] Psychologic: Affect normal, judgement normal, mood normal. [] EKG EKG [] Radiology/Procedures Radiology/Procedures [] Course & Med Decision Making Course & Med Decision Making Pertinent Labs and Imaging studies reviewed. (See chart for details) Patient take meds as previous directed. Patient take Tylenol and ibuprofen. For marked pain may take Vicoprofen up 4 times a day. Keep follow-up with [facility]. Return if any concerns. [] Dragon Disclaimer Dragon Disclaimer This electronic medical record was generated, in whole or in part, using a voice recognition dictation system. Departure Departure: Disposition: 01 HOME/RESIDENCE PRIOR TO ADM Condition: STABLE Referrals: PCP,UNKNOWN (PCP) Scripts Hydrocodone/Ibuprofen (HYDROCODONE-IBUPROFEN 7.5-200 ) 1 Each Tablet 2 TAB PO PRN Q6HRS PRN for PAIN, #30 TAB 0 Refills Prov: ZEINAB SAMPSON MD 08/22/19 Katlyn Disclaimer This chart was dictated in whole or in part using Voice Recognition software in a busy, high-work load, and often noisy Emergency Department environment. It may contain unintended and wholly unrecognized errors or omissions. Dragon Disclaimer This chart was dictated in whole or in part using Voice Recognition software in a busy, high-work load, and often noisy Emergency Department environment. It may contain unintended and wholly unrecognized errors or omissions. ZEINAB SAMPSON MD Aug 22, 2019 18:44
[2019-08-22 19:02] VITALS: BP 151/115
[2019-08-22] MEDS ORDERED: HYDR-1179 PO (19:27)
[2019-08-22] MEDS ORDERED: MORPHINE SULFATE 10 MG/ML SYRINGE. SQ ONE (19:30)
[2019-08-22] MEDS ORDERED: methylPREDNISolone ACETATE 40 MG/ML VIAL. IM ONE (19:30)
[2019-08-22] MEDS ORDERED: KETOROLAC 60 MG/2 ML VIAL. IM ONE (19:30)
[2019-08-22] MEDS ORDERED: ORPHENADRINE CITRATE 60 MG/2 ML VIAL. IM ONE (19:30)
[2019-08-22 19:32] LABS: BILIRUBIN,URINE NEG (NEG); CLARITY,URINE CLEAR; COLOR,URINE YELLOW; GLUCOSE,URINE NEG (NEG)
[2019-08-22 19:33] LABS: BACTERIA,URINE 0 /HPF (0-FEW); NITRITE,URINE NEG (NEG); RBC,URINE OCC /HPF (0-2); SQUAMOUS EPITHELIAL CELL,UR OCC /LPF; UROBILINOGEN,URINE 0.2 mg/dL (0.2 mg/dL); WBC,URINE OCC /HPF (0-4)
== END 2019-08-22 19:55 | disposition home or self-care (01) ==
LOC: ER 18:42
DX: G89.29 Other chronic pain (principal); M54.42 Lumbago with sciatica, left side; J44.9 Chronic obstructive pulmonary disease, unspecified; Z86.2 Personal history of diseases of the blood and blood-forming organs and certain disorders involving the immune mechanism
CPT/HCPCS: 81001; 96372; 99284; J1030; J1885; J2270; J2360

== ENCOUNTER 2019-10-05 23:50 | Emergency (ER) | payer OTHER ==
[~2019-10-05] VITALS: Ht 182.9 cm; Wt 123.4 kg
--- NOTE | 2019-10-05 23:55 | PHYS DOC ---
Past History Past Medical History: Bronchitis, COPD, Sciatica, Other Additional Past Medical Histor: undergoing a workup for anemia and chronic pain issues Past Surgical History: No Surgical History Smoking: Non-smoker Alcohol Use: None Drug Use: None Adult General Chief Complaint Chief Complaint: ".. We had sex tonight.. twice.. it was somewhat vigorous..... I though maybe I bump,.. my right testicle or something.. I had pain like this before... they said it was cyst... 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 Patient advises had previous epididymis cyst and had a similar episode of pain but not this severe. Had 4 lifetime sex partners. No history of STDs. No history of immunosuppression. No history of recent travel. No history of discharge with his sexual partner. Patient does have past medical history of anemia and sciatica. . No recent overseas assignments. Review of Systems Review of Systems Constitutional: Denies fever or chills [] Eyes: Denies change in visual acuity, redness, or eye pain [] HENT: Denies nasal congestion or sore throat [] Respiratory: Denies cough or shortness of breath [] Cardiovascular: No additional information not addressed in HPI [] GI: Denies abdominal pain, nausea, vomiting, bloody stools or diarrhea [] : Denies dysuria or hematuria [. Patient has]complaints of right testicle pain Musculoskeletal: Denies back pain or joint pain [] Integument: Denies rash or skin lesions [] Neurologic: Denies headache, focal weakness or sensory changes [] Endocrine: Denies polyuria or polydipsia [] All other systems were reviewed and found to be within normal limits, except as documented in this note. Family History Family History Noncontributory to current presentation Current Medications Current Medications See nursing for home medications Allergies Allergies Allergies Coded Allergies Type Severity Reaction Last Updated Verified No Known Drug Allergies 08/21/19 No Physical Exam Physical Exam Constitutional: Well developed, well nourished, moderate acute distress, non- toxic appearance. [] HENT: Normocephalic, atraumatic, bilateral external ears normal, oropharynx moist, no oral exudates, nose normal. [] Eyes: PERRLA, EOMI, conjunctiva normal, no discharge. [] Neck: Normal range of motion, no tenderness, supple, no stridor. [] Cardiovascular:Heart rate regular rhythm, no murmur [] Lungs & Thorax: Bilateral breath sounds equal at apex auscultation [] Abdomen: Bowel sounds normal, soft, no tenderness, no masses, no pulsatile masses. [] Right testicle: Pain. Circumcised male. Rectal exam prostate nontender Skin: Warm, dry, no erythema, no rash. [] Multiple tattoos. Back: No tenderness, no CVA tenderness. [] Extremities: No tenderness, no cyanosis, no clubbing, ROM intact, no edema. [] Neurologic: Alert and oriented X 3, normal motor function, normal sensory function, no focal deficits noted. [] Psychologic: Affect anxious, judgement normal, mood normal. [] EKG EKG [] Radiology/Procedures Radiology/Procedures [][address] [address] IMAGING REPORT Signed PATIENT: LIBIA HUNTLEY ACCOUNT: [id number] : 1995 LOCATION: ER AGE: 24 SEX: M EXAM STATUS: REG ER ORD. PHYSICIAN: ZEINAB SAMPSON MD REASON: pain PROCEDURE: TESTICULAR/SCROTUM Ultrasound the scrotum. HISTORY: Pain, right testicular pain Ultrasound was used to evaluate scrotum. Testicles are normal in size and appearance on each side. There is no significant hydrocele. Epididymis is within normal limits on each side. There is a small 5 mm cyst in the epididymis on the left. There is flow with color imaging and Doppler in both testicles. There is not evidence of torsion. IMPRESSION: 1. Small left epididymal cyst. 2. Normal testicles. 3. There is not evidence of torsion. Electronically signed by: Gaudencio Tello MD (10/06/2019 4:07 AM) [facility] DICTATED AND SIGNED BY: GAUDENCIO TELLO MD DATE: 10/06/19 0407 CC: ZEINAB SAMPSON MD; RUTHIE JONES DO ~ Course & Med Decision Making Course & Med Decision Making Pertinent Labs and Imaging studies reviewed. (See chart for details) A primary care. Take Vicoprofen up 4 times a day for pain. Consider follow-up with urology. Impression: 1. Right testicular pain 2. Left testicular epididymis cyst [] Dragon Disclaimer Dragon Disclaimer This electronic medical record was generated, in whole or in part, using a voice recognition dictation system. Departure Departure: Disposition: 01 HOME/RESIDENCE PRIOR TO ADM Condition: STABLE Referrals: RUTHIE JONES DO (PCP) Scripts Hydrocodone/Ibuprofen (HYDROCODONE-IBUPROFEN 7.5-200 ) 1 Each Tablet 1 TAB PO PRN Q6HRS PRN for PAIN, #30 TAB 0 Refills Prov: ZEINAB SAMPSON MD 10/06/19 Katlyn Disclaimer This chart was dictated in whole or in part using Voice Recognition software in a busy, high-work load, and often noisy Emergency Department environment. It may contain unintended and wholly unrecognized errors or omissions. ZEINAB SAMPSON MD Oct 05, 2019 23:55
[2019-10-06] MEDS ORDERED: LIDOCAINE 2% 20 ML VIAL. ONE (00:29)
[2019-10-06] MEDS ORDERED: KETOROLAC 60 MG/2 ML VIAL. IM ONE (00:30)
[2019-10-06] MEDS ORDERED: IV RINGERS SOLUTION,LACTATED 1,000 ML IV SCH (00:30)
[2019-10-06 00:43] LABS: BASO # 0.1 x10^3/uL (0.0-0.2); BASO % 1 % (0-3); EOS # 0.1 x10^3/uL (0.0-0.7); EOS % 2 % (0-3); HEMATOCRIT 46.7 % (39.0-53.0); HEMOGLOBIN 15.4 g/dL (13.0-17.5); LYMPH # 2.4 x10^3/uL (1.0-4.8); LYMPH % 40 % (24-48); MEAN CORPUSCULAR HEMOGLOBIN 26 pg (25-35); MEAN CORPUSCULAR HGB CONC 33 g/dL (31-37); MEAN CORPUSCULAR VOLUME 80 fL (79-100); MONO # 0.4 x10^3/uL (0.0-1.1); MONO % 6 % (0-9); NEUT % 52 % (31-73); PLATELET COUNT 265 x10^3/uL (140-400); RED BLOOD COUNT 5.86 x10^6/uL (4.30-5.70); RED CELL DISTRIBUTION WIDTH 13.8 % (11.5-14.5); WHITE BLOOD COUNT 5.9 x10^3/uL (4.0-11.0)
[2019-10-06 00:49] LABS: CALCIUM 8.1 mg/dL (8.5-10.1); CREATININE 0.9 mg/dL (0.7-1.3); GFR 123.4; POTASSIUM 3.6 mmol/L (3.5-5.1)
[2019-10-06 00:51] LABS: BILIRUBIN,URINE NEG (NEG); CLARITY,URINE CLEAR; COLOR,URINE YELLOW; GLUCOSE,URINE NEG (NEG)
[2019-10-06 00:52] LABS: BACTERIA,URINE 0 /HPF (0-FEW); BARBITURATES NEG (NEG); BENZODIAZEPINES NEG (NEG); CANNABINOIDS POS (NEG); COCAINE NEG (NEG); METHADONE NEG (NEG); NITRITE,URINE NEG (NEG); OPIATES NEG (NEG); PHENCYCLIDINE NEG (NEG); RBC,URINE 0 /HPF (0-2); UROBILINOGEN,URINE 0.2 mg/dL (0.2 mg/dL); WBC,URINE RARE /HPF (0-4)
[2019-10-06 00:58] LABS: AMPHETAMINE/METHAMPHETAMINE NEG (NEG)
[2019-10-06] MEDS ORDERED: MORPHINE SULFATE 10 MG/ML SYRINGE. SQ ONE (03:45)
[2019-10-06] MEDS ORDERED: HYDR-1179 PO (03:58)
--- NOTE | 2019-10-06 04:10 | RAD ---
Ultrasound the scrotum. HISTORY: Pain, right testicular pain Ultrasound was used to evaluate scrotum. Testicles are normal in size and appearance on each side. There is no significant hydrocele. Epididymis is within normal limits on each side. There is a small 5 mm cyst in the epididymis on the left. There is flow with color imaging and Doppler in both testicles. There is not evidence of torsion. IMPRESSION: 1. Small left epididymal cyst. 2. Normal testicles. 3. There is not evidence of torsion. Electronically signed by: Gaudencio Tello MD (10/06/2019 4:07 AM) [facility]
[2019-10-06 04:35] VITALS: BP 163/104
== END 2019-10-06 04:40 | disposition home or self-care (01) ==
LOC: ER 23:50
DX: N50.3 Cyst of epididymis (principal); J44.9 Chronic obstructive pulmonary disease, unspecified
CPT/HCPCS: 36415; 76870; 80048; 80307; 81001; 85025; 85045; 85610; 85730; 96372; 99285; J1885; J2270; J7120

== ENCOUNTER 2019-11-01 04:10 | Emergency (ER) | payer OTHER ==
[~2019-11-01] VITALS: Ht 182.9 cm; Wt 136.7 kg
[2019-11-01 04:20] VITALS: BP 156/103
[2019-11-01] MEDS ORDERED: tramadol (04:32)
[2019-11-01] MEDS ORDERED: HYDR-3165 PO (04:37)
--- NOTE | 2019-11-01 04:38 | PHYS DOC ---
Past History Past Medical History: Bronchitis, COPD, Sciatica, Other Additional Past Medical Histor: undergoing a workup for anemia and chronic pain issues Past Surgical History: No Surgical History Smoking: Non-smoker Alcohol Use: None Drug Use: None Adult General Chief Complaint Chief Complaint: BACK PA[facility] HPI Patient is a 24 year old male past medical history of chronic back pain presents with a chief complaint of back pain. Patient states he has had pain bilateral paraspinal thoracic region since 2015. Over the last several days pain is become significantly worse. Patient has been taking Ultram with no relief. Patient currently on medical eval with [facility]. Patient has previously treated with steroid injections. States was at [facility] last night and was only given pred nisone. Patient denies any injuries. He states [employer] has helped in the past. Review of Systems Review of Systems Constitutional: Denies fever or chills [] Eyes: Denies change in visual acuity, redness, or eye pain [] HENT: Denies nasal congestion or sore throat [] Respiratory: Denies cough or shortness of breath [] Cardiovascular: No additional information not addressed in HPI [] GI: Denies abdominal pain, nausea, vomiting, bloody stools or diarrhea [] : Denies dysuria or hematuria [] Musculoskeletal: Denies or joint pain [back pain] Integument: Denies rash or skin lesions [] Neurologic: Denies headache, focal weakness or sensory changes [no loss of bowel or bladder] Endocrine: Denies polyuria or polydipsia [] All other systems were reviewed and found to be within normal limits, except as documented in this note. Allergies Allergies Allergies Coded Allergies Type Severity Reaction Last Updated Verified No Known Drug Allergies 08/21/19 No Physical Exam Physical Exam Constitutional: Well developed, well nourished, no acute distress, non-toxic appearance. [] HENT: Normocephalic, atraumatic, bilateral external ears normal, oropharynx moist, no oral exudates, nose normal. [] Eyes: PERRLA, EOMI, conjunctiva normal, no discharge. [] Neck: Normal range of motion, no tenderness, supple, no stridor. [] Cardiovascular:Heart rate regular rhythm, no murmur [] Lungs & Thorax: Bilateral breath sounds clear to auscultation [] Abdomen: Bowel sounds normal, soft, no tenderness, no masses, no pulsatile masses. [] Skin: Warm, dry, no erythema, no rash. [] Back: tenderness bilateral paraspinal T1-L4, no midline spinal tenderness. [] Extremities: No tenderness, no cyanosis, no clubbing, ROM intact, no edema. [] Neurologic: Alert and oriented X 3, normal motor function, normal sensory function, no focal deficits noted. [] Psychologic: Affect normal, judgement normal, mood normal. [] EKG EKG [] Radiology/Procedures Radiology/Procedures [] Course & Med Decision Making Course & Med Decision Making Pertinent Labs and Imaging studies reviewed. (See chart for details) []Rx norco 325/5. [facility] Katlyn Disclaimer Katlyn Disclaimer This electronic medical record was generated, in whole or in part, using a voice recognition dictation system. Departure Departure: Impression: Primary Impression: Back pain Disposition: HOME, SELF-CARE Condition: STABLE Referrals: NON,STAFF (PCP) Patient Instructions: Back Pain, Adult Scripts Hydrocodone Bit/Acetaminophen (NORCO 5-325 TABLET) 1 Each Tablet 1 TAB PO Q6HRS, #20 TAB Prov: ARNOLDO METZGER I DO 11/01/19 ARNOLDO METZGER I DO Nov 01, 2019 04:38
[2019-11-01] MEDS ORDERED: HYDROcodone/APAP 5/325MG 1 TAB TABLET PO ONE (04:45)
[2019-11-01] MEDS ORDERED: HYDROcodone/APAP 5/325MG 1 TAB TABLET ONE (04:45)
== END 2019-11-01 04:46 | disposition home or self-care (01) ==
LOC: ER 04:10
DX: M54.9 Dorsalgia, unspecified (principal); J44.9 Chronic obstructive pulmonary disease, unspecified
CPT/HCPCS: 99283

== ENCOUNTER 2019-11-16 01:38 | Emergency (ER) | payer OTHER ==
[~2019-11-16] VITALS: Ht 182.9 cm; Wt 124.0 kg
[~2019-11-16 01:38] MED LIST changes: +tramadol
[2019-11-16] MEDS ORDERED: PRED20TA PO (01:51)
[2019-11-16] MEDS ORDERED: BUTA1TAB23 PO (01:51)
[2019-11-16] MEDS ORDERED: ORPH-16 PO (01:51)
--- NOTE | 2019-11-16 01:51 | PHYS DOC ---
Past History Past Medical History: Bronchitis, COPD, Sciatica, Other Additional Past Medical Histor: Chronic pain Past Surgical History: Other Additional Past Surgical Histo: shyann ankle surgeries; wisdom teeth Smoking: Non-smoker Alcohol Use: None Drug Use: None Adult General Chief Complaint Chief Complaint: HEADACHE HPI HPI 24 year old male presents with report of headache to left side of head with report of associated nausea and "left leg numbness" which started to night. Reports photophobia. Denies neck pain. Denies fever/chills. Denies trauma. Review of Systems Review of Systems Constitutional: Denies fever or chills Eyes: Denies change in visual acuity, redness, or eye pain HENT: Denies nasal congestion or sore throat Respiratory: Denies cough or shortness of breath Cardiovascular: Denies chest pain or palpitations GI: Denies abdominal pain; reports nausea : Denies dysuria or hematuria Musculoskeletal: Denies back pain or joint pain Integument: Denies rash or skin lesions Neurologic: Reports headache and left leg numbness; Denies weakness Complete systems were reviewed and found to be within normal limits, except as documented in this note. Allergies Allergies Allergies Coded Allergies Type Severity Reaction Last Updated Verified No Known Drug Allergies 11/01/19 No Physical Exam Physical Exam Constitutional: Well developed, well nourished, no acute distress, non-toxic appearance HENT: Normocephalic, atraumatic, oropharynx moist Eyes: PERRL, EOMI, conjunctiva normal, no discharge, photophobia Neck: Normal range of motion, no tenderness, supple, no meningeal signs Cardiovascular:Heart rate normal, regular rhythm Lungs & Thorax: Bilateral breath sounds clear to auscultation Abdomen: Bowel sounds normal, soft, no tenderness Skin: Warm, dry, no erythema, no rash Extremities: No tenderness, ROM intact Neurologic: Alert and oriented X 3, normal motor function, normal sensory function, no focal deficits noted Psychologic: Affect normal, judgement normal EKG EKG @0213 NSR at 87bpm, NO ST elevation, QRS 84ms, QT/QTc 348/419ms Radiology/Procedures Radiology/Procedures PROCEDURE: CT HEAD WO CONTRAST CT HEAD WO CONTRAST History: Headache. Comparison: None. Technique: Noncontrast CT imaging was performed of the head. Exposure: One or more of the following individualized dose reduction techniques were utilized for this examination: 1. Automated exposure control 2. Adjustment of the mA and/or kV according to patient size 3. Use of iterative reconstruction technique. Findings: No intracranial hemorrhage. No mass effect. No hydrocephalus. Extra-axial spaces are unremarkable. Imaged orbits are unremarkable. Imaged paranasal sinuses and mastoid air cells are clear. No acute calvarial fracture. Impression: 1. No acute intracranial abnormality. Electronically signed by: Reginaldo Madrid DO (11/16/2019 2:42 AM) [id number] Course & Med Decision Making Course & Med Decision Making Pertinent Labs and Imaging studies reviewed. (See chart for details) Patient presents with report of headache with associated nausea and photophobia. Reports left leg "numbness"- resolved upon arrival. NIHSS 0. Hypertension noted. Symptomatic treatment provided. Labs obtained and posted to chart. CPK elevated. IVF hydration given. BUN/Creat stable. EKG stable. CT head without acute process. Hypertension with interval improvement. Patient reports interval resolution of symptoms. Patient stable for discharge home with outpatient follow-up with PCP/neurologist. Neurology referral provided. Discussed findings and plan with patient and family, who acknowledges understanding and agreement. Dragon Disclaimer Dragon Disclaimer This electronic medical record was generated, in whole or in part, using a voice recognition dictation system. Departure Departure: Impression: Primary Impression: Headache Additional Impression: Elevated CPK Disposition: HOME, SELF-CARE Condition: IMPROVED Referrals: RUTHIE JONES DO (PCP) ELLIOTT HARRY MD Patient Instructions: Headache, FAQs Scripts Orphenadrine Citrate (ORPHENADRINE CITRATE) 100 Mg Tablet.er 1 TAB PO BID PRN for MUSCLE PAIN, #14 TAB 0 Refills Prov: KARYN RUDD DO 11/16/19 Prednisone (PREDNISONE) 20 Mg Tablet 2 TAB PO DAILY for Headache, #8 TAB Start this prescription tomorrow, Sunday11/17/19 Prov: KARYN RUDD DO 11/16/19 Butalb/Acetaminophen/Caffeine (YSXGJT-UHJUMSSG-GUZE 50-325-40) 1 Each Tablet 1 EACH PO Q6HRS PRN for HEADACHE, #14 TAB Prov: KARYN RUDD DO 11/16/19 NIHSS Stroke Scale NIH Stroke Scale: NIH Stroke Scale Response (Comments) Value Level of Consciousness: 0 Alert/Responsive 0 LOC Questions: 0 Answers both correctly 0 LOC Commands: 0 Performs both tasks 0 Best Gaze: 0 Normal 0 Visual: 0 No visual loss 0 Facial Palsy: 0 Normal, symmetrical 0 Motor - Left Arm 0 No drift 0 Motor - Right Arm 0 No drift 0 Motor - Left Leg 0 No drift 0 Motor: Right Leg 0 No drift 0 Limb Ataxia: 0 Absent 0 Sensory: 0 No loss 0 Best Language: 0 Normal 0 Dysathria: 0 Normal 0 Extinction and Inattention: 0 Normal 0 Total 0 Problem Qualifiers Primary Impression: Headache Headache type: unspecified Headache chronicity pattern: acute headache Intractability: not intractable Qualified Codes: R51 - Headache KARYN RUDD DO Nov 16, 2019 01:51
[2019-11-16] MEDS ORDERED: DEXAMETHASONE SOD PHOS 10 MG/ML VIAL ONE (02:21)
[2019-11-16 02:26] LABS: BASO # 0.1 x10^3/uL (0.0-0.2); BASO % 1 % (0-3); EOS # 0.1 x10^3/uL (0.0-0.7); EOS % 2 % (0-3); HEMATOCRIT 49.9 % (39.0-53.0); LYMPH # 2.6 x10^3/uL (1.0-4.8); LYMPH % 31 % (24-48); MEAN CORPUSCULAR HEMOGLOBIN 26 pg (25-35); MEAN CORPUSCULAR HGB CONC 32 g/dL (31-37); MEAN CORPUSCULAR VOLUME 80 fL (79-100); MONO # 0.6 x10^3/uL (0.0-1.1); MONO % 7 % (0-9); NEUT # 4.9 x10^3uL (1.8-7.7); NEUT % 59 % (31-73); PLATELET COUNT 245 x10^3/uL (140-400); RED BLOOD COUNT 6.23 x10^6/uL (4.30-5.70); RED CELL DISTRIBUTION WIDTH 13.4 % (11.5-14.5); WHITE BLOOD COUNT 8.3 x10^3/uL (4.0-11.0)
[2019-11-16] MEDS ORDERED: KETOROLAC 15 MG/ML VIAL. IVP ONE (02:30)
[2019-11-16] MEDS ORDERED: cloNIDine HCL 0.1 MG TABLET PO ONE (02:30)
[2019-11-16] MEDS ORDERED: METOCLOPRAMIDE HCL 10 MG/2 ML VIAL. IVP ONE (02:30)
[2019-11-16] MEDS ORDERED: diphenhydrAMINE 50 MG/ML VIAL IVP ONE (02:30)
[2019-11-16 02:34] LABS: CREATININE 0.9 mg/dL (0.7-1.3); GFR 123.4; POTASSIUM 3.9 mmol/L (3.5-5.1)
[2019-11-16] MEDS ORDERED: ORPHENADRINE CITRATE 60 MG/2 ML VIAL. IV ONE (02:45)
--- NOTE | 2019-11-16 02:45 | RAD ---
CT HEAD WO CONTRAST History: Headache. Comparison: None. Technique: Noncontrast CT imaging was performed of the head. Exposure: One or more of the following individualized dose reduction techniques were utilized for this examination: 1. Automated exposure control 2. Adjustment of the mA and/or kV according to patient size 3. Use of iterative reconstruction technique. Findings: No intracranial hemorrhage. No mass effect. No hydrocephalus. Extra-axial spaces are unremarkable. Imaged orbits are unremarkable. Imaged paranasal sinuses and mastoid air cells are clear. No acute calvarial fracture. Impression: 1. No acute intracranial abnormality. Electronically signed by: Reginaldo Madrid DO (11/16/2019 2:42 AM) [id number]
[2019-11-16 02:49] LABS: ALBUMIN 3.6 g/dL (3.4-5.0); MAGNESIUM 1.7 mg/dL (1.8-2.4); TOTAL BILIRUBIN 0.4 mg/dL (0.2-1.0); TOTAL PROTEIN 7.1 g/dL (6.4-8.2)
[2019-11-16] MEDS ORDERED: DEXAMETHASONE SOD PHOS 4 MG/ML VIAL IVP ONE (03:00)
[2019-11-16 03:17] VITALS: BP 145/80
--- NOTE | 2019-11-16 12:33 | EKG ---
[address] [address] Test Date: 2019-11-16 Test Time: 02:13:16 Pat Name: LIBIA HUNTLEY Department: Room: Gender: M Electrical Helper: : 1995 Requested By: KARYN RUDD Order Number: [id number] Reading MD: Measurements Intervals [place] Rate: 87 P: 24 IA: 166 QRS: 16 QRSD: 84 T: 28 QT: 348 QTc: 419 Interpretive Statements SINUS RHYTHM NO SPECIFIC ECG ABNORMALITIES RI6.01 No previous ECG available for comparison
== END 2019-11-16 03:35 | disposition home or self-care (01) ==
LOC: ER 01:38
DX: R51 Headache (principal); R74.8 Abnormal levels of other serum enzymes; R11.0 Nausea; R20.0 Anesthesia of skin; J44.9 Chronic obstructive pulmonary disease, unspecified; G89.29 Other chronic pain
CPT/HCPCS: 36415; 70450; 80053; 82553; 83735; 84484; 85025; 85610; 85730; 93005; 96374; 96375; 99285; J1100; J1200; J1885; J2360; J2765

== ENCOUNTER 2019-12-25 12:34 | Emergency (ER) | payer OTHER ==
[~2019-12-25] VITALS: Ht 180.3 cm; Wt 124.0 kg
[~2019-12-25 12:34] MED LIST changes: +BUTA1TAB23 PO; +ORPH-16 PO
[2019-12-25] MEDS ORDERED: IV NORMAL SALINE 1,000ML 1,000 ML IV ONE (13:00)
[2019-12-25] MEDS ORDERED: cloNIDine HCL 0.1 MG TABLET PO ONE (13:15)
[2019-12-25] MEDS ORDERED: KETOROLAC 30 MG/ML VIAL. IVP ONE (13:15)
--- NOTE | 2019-12-25 13:15 | RAD ---
EXAM: Chest, single view. HISTORY: Short of breath. COMPARISON: 01/22/2019 FINDINGS: A frontal view of the chest is obtained. There is no infiltrate, pleural effusion or pneumothorax. The heart is normal in size. IMPRESSION: No acute pulmonary finding. Electronically signed by: Deisy Mehta MD (12/25/2019 1:12 PM) [facility]
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
[2019-12-25 13:43] VITALS: BP 146/85
[2019-12-25 13:44] LABS: BASO # 0.1 x10^3/uL (0.0-0.2); BASO % 1 % (0-3); EOS # 0.1 x10^3/uL (0.0-0.7); EOS % 2 % (0-3); HEMATOCRIT 48.7 % (39.0-53.0); HEMOGLOBIN 16.1 g/dL (13.0-17.5); LYMPH # 2.4 x10^3/uL (1.0-4.8); LYMPH % 39 % (24-48); MEAN CORPUSCULAR HEMOGLOBIN 26 pg (25-35); MEAN CORPUSCULAR HGB CONC 33 g/dL (31-37); MEAN CORPUSCULAR VOLUME 79 fL (79-100); MONO # 0.5 x10^3/uL (0.0-1.1); MONO % 8 % (0-9); NEUT # 3.1 x10^3uL (1.8-7.7); NEUT % 50 % (31-73); PLATELET COUNT 279 x10^3/uL (140-400); RED BLOOD COUNT 6.15 x10^6/uL (4.30-5.70); RED CELL DISTRIBUTION WIDTH 12.9 % (11.5-14.5); WHITE BLOOD COUNT 6.2 x10^3/uL (4.0-11.0)
[2019-12-25 13:57] LABS: CALCIUM 8.8 mg/dL (8.5-10.1); GFR 109.3; POTASSIUM 3.9 mmol/L (3.5-5.1)
[2019-12-25 14:03] LABS: ALBUMIN 3.7 g/dL (3.4-5.0); TOTAL BILIRUBIN 0.2 mg/dL (0.2-1.0); TOTAL PROTEIN 7.5 g/dL (6.4-8.2)
== END 2019-12-25 14:17 | disposition home or self-care (01) ==
LOC: ER 12:34
DX: R55 Syncope and collapse (principal); I10 Essential (primary) hypertension; R53.83 Other fatigue; G89.29 Other chronic pain; M54.5 Low back pain
CPT/HCPCS: 36415; 71045; 80053; 85025; 96361; 96374; 99284; J1885; J7030

== ENCOUNTER 2020-01-09 03:46 | Emergency (ER) | payer OTHER ==
[~2020-01-09] VITALS: Ht 180.3 cm; Wt 131.8 kg
--- NOTE | 2020-01-09 03:48 | PHYS DOC ---
Past History Past Medical History: Other Additional Past Medical Histor: Chronic pain Back Past Medical History Recurrent episodes of Testicular pain Past Surgical History: Other Additional Past Surgical Histo: shyann ankle surgeries; wisdom teeth Smoking: Non-smoker Alcohol Use: None Drug Use: None General Adult HPI: HPI: "..I was playing with my son today...and I bent over..and got one of my sharp pains in my back....I got chronic back pain....but I get these times when I bend over wrong....or lift.something...and it starts a cycle of pain... that does not go away with the Tramadol .. they give me at [facility]...I ve been every where that [facility] sends me for treatment....the last neurosurgery.. consult said ... I was not a candidate for surgery... Yet...I had follow up ... but everything is canceled because of the [place] thing..." " ... When my back pain gets this bad they usually send me to the emergency room for shots..." Patient is a 24 year old male who presents with above hx and complaints of exacerbation of his chronic back / sciatica pain. Patient has had multiple ED visits for back pain exacerbations and testicular pain. Patient last seen on , 08/22/19, 08/21/19, 07/18/2019 and 06/30/2019 for sciatica and testicular pain visits. Patient denies problems with defecation or urination. Patient denies any history of fever. Patient denies any history of cancer. Patient denies any history of immunosuppression. Patient denies any recent travel outside the [place] area. Patient states all his back pain problems s tarted October 06, 2015 when he fell off [employer] in [place]. Pt.states since that time he had chronic back pain with periodic episodes of exacerbation. Reportedly patient has had physical therapy, massage, trigger point injections, steroids, TENS tx, acupuncture, and periodic courses of anti-inflammatories and pain meds. Patient currently has been using tramadol for his exacerbations prescribed to him from [facility]. Pain is para lumbar and follows the sciatic nerve into both hips and down the back of both legs. Straight leg lifts exacerbates pain in both sciatic nerves. Patient currently has no saddle loss. Movement of bending side to side and forward exacerbates his bilateral sciatic pain. Patient rates his pain denied as moderately severe to the point he is unable to sleep. Review of Systems: Review of Systems: Constitutional: Denies fever or chills Eyes: Denies change in visual acuity HENT: Denies nasal congestion or sore throat Respiratory: Denies cough or shortness of breath Cardiovascular: Denies chest pain or edema GI: Denies abdominal pain, nausea, vomiting, bloody stools or diarrhea : Denies dysuria Musculoskeletal: Complains of exacerbation of his chronic back pain Integument: Denies rash Neurologic: Denies headache, focal weakness or sensory changes Endocrine: Denies polyuria or polydipsia Lymphatic: Denies swollen glands Psychiatric: Denies depression or anxiety Heart Score: Risk Factors: Risk Factors: DM, Current or recent (<one month) smoker, HTN, HLP, family history of CAD, obesity. Risk Scores: Score 0 - 3: 2.5% MACE over next 6 weeks - Discharge Home Score 4 - 6: 20.3% MACE over next 6 weeks - Admit for Clinical Observation Score 7 - 10: 72.7% MACE over next 6 weeks - Early Invasive Strategies Family History: Family History: Noncontributory Current Medications: Current Meds: See nursing for home meds Allergies: Allergies: Allergies Coded Allergies Type Severity Reaction Last Updated Verified No Known Drug Allergies 11/01/19 No Physical Exam: PE: Constitutional: In moderately acute distress, non-toxic appearance. [] HENT: Normocephalic, atraumatic, bilateral external ears normal, oropharynx moist, no oral exudates, nose normal. [] Eyes: PERRLA, EOMI, conjunctiva normal, no discharge. [] Neck: Normal range of motion, no tenderness, supple, no stridor. [] Cardiovascular:Heart rate regular rhythm, no murmur [] Lungs & Thorax: Bilateral breath sounds equal apex on auscultation [] Abdomen: Bowel sounds normal, soft, no tenderness, no masses, no pulsatile masses. Obese. Testicles descended. Circumcised male. Skin: Warm, dry, no erythema, no rash. Multiple tattoos. Back: No tenderness, no CVA tenderness. [] Extremities: No tenderness, no cyanosis, no clubbing, ROM intact, no edema. [] Does have a guarded gait. Neurologic: Alert and oriented X 3, normal motor function, normal sensory function, no focal deficits noted. [] DTRs +2 at patella. Straight leg lift exacerbates his sciatic pain Psychologic: Affect anxious,, judgement normal, mood normal. [] EKG: EKG: [] Radiology/Procedures: Radiology/Procedures: [] Course & Med Decision Making: Course & Med Decision Making Pertinent Labs and Imaging studies reviewed. (See chart for details) Patient to keep follow-up [facility] and scheduled appointments for his chronic back pain work-up. Patient to give a trial of lidocaine patches. Patient take Tylenol and ibuprofen for pain. Use ice packs. For marked pain may take Vicoprofen up to 4 times a day. May take Flexeril 10 mg up to 3 times a day for muscle spasms. Must continue to keep follow-up at [facility]. Consider reconsult with neurosurgery, may be a candidate for intra thecal contrast MRI to evaluate lumbar sacral sciatica . 1. Exacerbation of chronic low back pain-sciatica [] Dragon Disclaimer: Katlyn Disclaimer: This electronic medical record was generated, in whole or in part, using a voice recognition dictation system. Departure Departure: Disposition: 01 HOME/RESIDENCE PRIOR TO ADM Condition: STABLE Referrals: RUTHIE JONES DO (PCP) Scripts Lidocaine (Lidocaine PATCH ) 1 Each Adh..patch 1 EACH TP DAILY for FOR LOCAL PAIN, #30 PATCH REMOVE AFTER 12 HOURS Prov: ZEINAB SAMPSON MD 01/09/20 Cyclobenzaprine Hcl (CYCLOBENZAPRINE HCL) 10 Mg Tablet 10 MG PO tidprn for muscle spasms, #30 TAB Prov: ZEINAB SAMPSON MD 01/09/20 Hydrocodone/Ibuprofen (HYDROCODONE-IBUPROFEN 7.5-200 ) 1 Each Tablet 1 TAB PO PRN Q6HRS PRN for PAIN, #30 TAB 0 Refills Prov: ZEINAB SAMPSON MD 01/09/20 Katlyn Disclaimer This chart was dictated in whole or in part using Voice Recognition software in a busy, high-work load, and often noisy Emergency Department environment. It may contain unintended and wholly unrecognized errors or omissions. Dragon Disclaimer This chart was dictated in whole or in part using Voice Recognition software in a busy, high-work load, and often noisy Emergency Department environment. It may contain unintended and wholly unrecognized errors or omissions. ZEINAB SAMPSON MD Jan 09, 2020 03:48
[2020-01-09 03:58] VITALS: BP 142/89
[2020-01-09] MEDS ORDERED: LIDO700A21 TP (04:12)
[2020-01-09] MEDS ORDERED: CYCL-331 PO (04:12)
[2020-01-09] MEDS ORDERED: HYDR-1179 PO (04:12)
[2020-01-09] MEDS ORDERED: ORPHENADRINE CITRATE 60 MG/2 ML VIAL. IM ONE (04:30)
[2020-01-09] MEDS ORDERED: KETOROLAC 60 MG/2 ML VIAL. IM ONE (04:30)
[2020-01-09] MEDS ORDERED: MORPHINE SULFATE 10 MG/ML SYRINGE. SQ ONE (04:30)
== END 2020-01-09 04:40 | disposition home or self-care (01) ==
LOC: ER 03:46
DX: M54.42 Lumbago with sciatica, left side (principal); M54.41 Lumbago with sciatica, right side; G89.29 Other chronic pain
CPT/HCPCS: 96372; 99284; J1885; J2270; J2360

== ENCOUNTER 2020-03-08 07:20 | Emergency (ER) | payer OTHER ==
[~2020-03-08] VITALS: Ht 180.3 cm; Wt 137.3 kg
[~2020-03-08 07:20] MED LIST changes: +CYCL-331 PO; +LIDO700A21 TP
[2020-03-08] MEDS ORDERED: OXYC-325 PO (07:59)
[2020-03-08] MEDS ORDERED: oxyCODONE/APAP 5/325 1 TAB TABLET PO ONE (08:00)
--- NOTE | 2020-03-08 08:00 | PHYS DOC ---
Past History Past Medical History: Sickle Cell Disease, Other Additional Past Medical Histor: chronic back pain; right testicle cyst; kidney cyst; degenerative disc Past Surgical History: Other Additional Past Surgical Histo: shyann ankle surgeries; wisdom teeth Smoking: Non-smoker Alcohol Use: None Drug Use: None General Adult EDM: Chief Complaint: BACK PAIN OR INJURY HPI: HPI: 24-year-old male presents with right-sided low back pain. Patient has a chronic back pain from an injury and the a few years ago. He has been through pain management, muscle relaxers, stimulators, physical therapy. He said all kinds of testing him and diagnosed with chronic pain. He is normally on tramadol and hydrocodone at baseline. He presents today because he was playing around with his son more yesterday and now he has greater pain. He try to take tramadol yesterday which did not help. He took to [place] 5/325 this morning but is not finding relief. He normally takes hydrocodone at night and tramadol during the day. He is getting injections through pain management but they have not been working. They are discussing further options for the patient. He denies any other injuries or complaints. Review of Systems: Review of Systems: Constitutional: Denies fever or chills Eyes: Denies change in visual acuity HENT: Denies nasal congestion or sore throat Respiratory: Denies cough or shortness of breath Cardiovascular: Denies chest pain or edema GI: Denies abdominal pain, nausea, vomiting, bloody stools or diarrhea : Denies dysuria Musculoskeletal: Low back pain Integument: Denies rash Neurologic: Denies headache, focal weakness or sensory changes Endocrine: Denies polyuria or polydipsia Lymphatic: Denies swollen glands Psychiatric: Denies depression or anxiety Heart Score: Risk Factors: Risk Factors: DM, Current or recent (<one month) smoker, HTN, HLP, family history of CAD, obesity. Risk Scores: Score 0 - 3: 2.5% MACE over next 6 weeks - Discharge Home Score 4 - 6: 20.3% MACE over next 6 weeks - Admit for Clinical Observation Score 7 - 10: 72.7% MACE over next 6 weeks - Early Invasive Strategies Current Medications: Current Meds: Current Medications Medications (Trade) Dose Ordered Sig/Maddy Start Time Stop Time Status Last Admin Dose Admin Oxycodone/ Acetaminophen (Percocet 5/325) 1 tab 1X ONCE 6/22/20 08:00 03/08/20 08:01 UNV Allergies: Allergies: Allergies Coded Allergies Type Severity Reaction Last Updated Verified No Known Drug Allergies 03/08/20 No Physical Exam: PE: Constitutional: Well developed, well nourished, no acute distress, non-toxic appearance. [] HENT: Normocephalic, atraumatic, bilateral external ears normal, oropharynx moist, no oral exudates, nose normal. [] Eyes: PERRLA, EOMI, conjunctiva normal, no discharge. [] Neck: Normal range of motion, no tenderness, supple, no stridor. [] Cardiovascular:Heart rate regular rhythm, no murmur [] Lungs & Thorax: Bilateral breath sounds clear to auscultation [] Abdomen: Bowel sounds normal, soft, no tenderness, no masses, no pulsatile masses. [] Skin: Warm, dry, no erythema, no rash. [] Back: Tenderness of the right paraspinal lumbar muscles, no significant muscle spasm. [] Extremities: No tenderness, no cyanosis, no clubbing, ROM intact, no edema. [] Neurologic: Alert and oriented X 3, normal motor function, normal sensory function, no focal deficits noted. [] Psychologic: Affect normal, judgement normal, mood normal. [] Current Patient Data: Vital Signs: Vital Signs Date Time Temp Pulse Resp B/P (MAP) Pulse Ox O2 Delivery O2 Flow Rate FiO2 03/08/20 07:25 97.6 96 18 146/110 (122) 95 Room Air EKG: EKG: [] Radiology/Procedures: Radiology/Procedures: [] Course & Med Decision Making: Course & Med Decision Making Pertinent Labs and Imaging studies reviewed. (See chart for details) I reviewed the patient's narcotic database. He is getting steady refills of tramadol as he stated. He has had intermittent dosing of hydrocodone and a few prescription from the emergency room. His most recent ER visit was in December. The patient was very upfront with his medications and what he is currently doing with pain management. I choose to believe that he is having worsening pain that is acute on chronic. I will treat him with 1 Percocet 5/325 in the emergency room and I will discharge him with 10 for home. The patient has prednisone at home and I have advised that he take 60 mg daily for at least the next 3 days. He is stable for discharge at this time. [] Dragon Disclaimer: Dragon Disclaimer: This electronic medical record was generated, in whole or in part, using a voice recognition dictation system. Departure Departure: Impression: Primary Impression: Back pain Qualified Codes: M54.5 - Low back pain Disposition: HOME/RESIDENCE PRIOR TO ADM Condition: STABLE Referrals: RUTHIE JONES DO (PCP) Patient Instructions: Low Back Strain with [facility] Scripts Oxycodone HCl/Acetaminophen (Percocet 5-325 mg Tablet) 1 Each Tablet 1 TAB PO PRN TID PRN for SEVERE PAIN 7-10 MDD 3 Tablet(s), #10 TAB 0 Refills Prov: LAURA ELAM DO 03/08/20 Justification of Admission: Justification of Admission: Justification of Admission Dx: N/A LAURA ELAM DO Mar 08, 2020 08:00
[2020-03-08 08:07] VITALS: BP 141/96
== END 2020-03-08 08:07 | disposition home or self-care (01) ==
LOC: ER 07:20
DX: M54.5 Low back pain (principal); G89.29 Other chronic pain; Z86.2 Personal history of diseases of the blood and blood-forming organs and certain disorders involving the immune mechanism
CPT/HCPCS: 99283

== ENCOUNTER 2020-03-14 03:04 | Emergency (ER) | payer OTHER ==
[~2020-03-14] VITALS: Ht 180.3 cm; Wt 140.0 kg
[~2020-03-14 03:04] MED LIST changes: +OXYC-325 PO
[2020-03-14 03:39] LABS: BACTERIA,URINE FEW /HPF (0-FEW); BILIRUBIN,URINE NEG (NEG); CLARITY,URINE CLEAR; COLOR,URINE YELLOW; GLUCOSE,URINE NEG (NEG); NITRITE,URINE NEG (NEG); RBC,URINE RARE /HPF (0-2); SQUAMOUS EPITHELIAL CELL,UR OCC /LPF; UROBILINOGEN,URINE 0.2 mg/dL (0.2 mg/dL); WBC,URINE OCC /HPF (0-4)
[2020-03-14] MEDS ORDERED: MORPHINE SULFATE 4 MG/ML DISP.SYRIN. IV ONE (04:00)
[2020-03-14] MEDS ORDERED: ONDANSETRON PF 4 MG/2 ML VIAL. IVP ONE (04:00)
--- NOTE | 2020-03-14 04:03 | PHYS DOC ---
Past History Past Medical History: Arthritis, Sickle Cell Disease, Sciatica, Other Additional Past Medical Histor: chronic back pain; right testicle cyst; kidney cyst; DJD;Thalicemia Past Surgical History: Other Additional Past Surgical Histo: shyann ankle surgeries; wisdom teeth Smoking: Non-smoker Alcohol Use: None Drug Use: None General Adult EDM: Chief Complaint: BACK PAIN - NO INJURY HPI: HPI: 24-year-old male returns the emergency room with continued low back pain. I saw this patient a few days ago for the same complaint. Today he states that he has had 1 episode of urinary incontinence. Since that time, the patient feels like he has urinary urgency. He denies perineal numbness or loss of bowel control. He has had no new trauma or falls. He denies fever chills. He is supposed to go back to [place] in about a week to have a nerve ablation procedure for his back pain. Until that time, he has no pain medication at home. I did discharge him with pain medication at his last visit. Review of Systems: Review of Systems: Constitutional: Denies fever or chills Eyes: Denies change in visual acuity HENT: Denies nasal congestion or sore throat Respiratory: Denies cough or shortness of breath Cardiovascular: Denies chest pain or edema GI: Denies abdominal pain, nausea, vomiting, bloody stools or diarrhea : Urinary incontinence, urgency. Musculoskeletal: Low back pain Integument: Denies rash Neurologic: Denies headache, focal weakness or sensory changes Endocrine: Denies polyuria or polydipsia Lymphatic: Denies swollen glands Psychiatric: Denies depression or anxiety Heart Score: Risk Factors: Risk Factors: DM, Current or recent (<one month) smoker, HTN, HLP, family history of CAD, obesity. Risk Scores: Score 0 - 3: 2.5% MACE over next 6 weeks - Discharge Home Score 4 - 6: 20.3% MACE over next 6 weeks - Admit for Clinical Observation Score 7 - 10: 72.7% MACE over next 6 weeks - Early Invasive Strategies Current Medications: Current Meds: Current Medications Medications (Trade) Dose Ordered Sig/Maddy Start Time Stop Time Status Last Admin Dose Admin Iohexol (Omnipaque 300 Mg/ml) 75 ml 1X ONCE 03/14/20 03:45 03/14/20 03:46 UNV Morphine Sulfate (Morphine 4mg Syringe) 4 mg 1X ONCE 6/28/20 04:00 03/14/20 04:01 UNV Ondansetron HCl (Zofran) 4 mg 1X ONCE 03/14/20 04:00 03/14/20 04:01 UNV Allergies: Allergies: Allergies Coded Allergies Type Severity Reaction Last Updated Verified No Known Drug Allergies 03/08/20 No Physical Exam: PE: Constitutional: Well developed, morbidly obese, well nourished, no acute distress, non-toxic appearance. [] HENT: Normocephalic, atraumatic, bilateral external ears normal, oropharynx moist, no oral exudates, nose normal. [] Eyes: PERRLA, EOMI, conjunctiva normal, no discharge. [] Neck: Normal range of motion, no tenderness, supple, no stridor. [] Cardiovascular:Heart rate regular rhythm, no murmur [] Lungs & Thorax: Bilateral breath sounds clear to auscultation [] Abdomen: Bowel sounds normal, soft, no tenderness, no masses, no pulsatile masses. [] Skin: Warm, dry, no erythema, no rash. [] Back: No tenderness, no CVA tenderness. [] Extremities: No tenderness, no cyanosis, no clubbing, ROM intact, no edema. [] Neurologic: Alert and oriented X 3, normal motor function, normal sensory f unction, no focal deficits noted. [] Psychologic: Affect normal, judgement normal, mood normal. [] Current Patient Data: Labs: Laboratory Tests Test 03/14/20 03:09 Urine Collection Type Unknown Urine Color Yellow Urine Clarity Clear Urine pH 5.5 Urine Specific [place] 1.020 Urine Protein Neg (NEG-TRACE) Urine Glucose (UA) Neg mg/dL (NEG) Urine Ketones (Stick) Neg mg/dL (NEG) Urine Blood Neg (NEG) Urine Nitrite Neg (NEG) Urine Bilirubin Neg (NEG) Urine Urobilinogen Dipstick 0.2 mg/dL (0.2 mg/dL) Urine Leukocyte Esterase Neg (NEG) Urine RBC Rare /HPF (0-2) Urine WBC Occ /HPF (0-4) Urine Squamous Epithelial Cells Occ /LPF Urine Bacteria Few /HPF (0-FEW) Vital Signs: Vital Signs Date Time Temp Pulse Resp B/P (MAP) Pulse Ox O2 Delivery O2 Flow Rate FiO2 03/14/20 03:05 98.5 135 24 142/75 (97) 97 Room Air EKG: EKG: [] Radiology/Procedures: Radiology/Procedures: [] Impressions: CT lumbar spine with contrast. HISTORY: Low back pain with urinary incontinence CT scan of the lumbar spine was done using 75 mL Isovue-370 contrast. There is an incidental cyst in the right kidney. No further follow-up is warranted. There is no aneurysm or periaortic adenopathy noted. Lumbar spine is in normal alignment. There is no spondylolysis or spondylolisthesis. There is no spinal stenosis. There is mild bulging of disc at L4-5. There is no disc protrusion or spinal stenosis in the lumbar spinal canal. impression: 1. Mild bulging of disc at L4-5. 2. No spinal stenosis or foraminal stenosis noted. RS Compliance Statement: One or more of the following individualized dose reduction techniques were utilized for this examination: 1. Automated exposure control 2. Adjustment of the mA and/or kV according to patient size 3. Use of iterative reconstruction technique Electronically signed by: Gaudencio Fair MD (03/14/2020 5:15 AM) [id number] DICTATED AND SIGNED BY: GAUDENCIO FAIR MD DATE: 03/14/20 0515 CC: LAURA ELAM DO; RUTHIE JONES DO ~ Course & Med Decision Making: Course & Med Decision Making Pertinent Labs and Imaging studies reviewed. (See chart for details) The patient's CT is negative for acute findings. There is a disc bulge at L4-5. See official report for more details. This does not explain the patient's symptoms. His urinalysis is negative for infection. He has had no further symptoms while in the emergency room. He is tachycardic. The patient has been on high-dose pain medications. He is now presumably out of these medications and this could be a primary cause of his symptoms. I have stressed the importance of consistent pain management to manage all his medications. The patient is stable for discharge at this time. [] Dragon Disclaimer: Dragon Disclaimer: This electronic medical record was generated, in whole or in part, using a voice recognition dictation system. Departure Departure: Impression: Primary Impression: Low back pain Qualified Codes: M54.5 - Low back pain; G89.29 - Other chronic pain Disposition: 01 HOME/RESIDENCE PRIOR TO ADM Condition: STABLE Referrals: RUTHIE JONES DO (PCP) Patient Instructions: Back Pain, Adult, [id number] Justification of Admission: Justification of Admission: Justification of Admission Dx: N/A LAURA ELAM DO Mar 14, 2020 04:03
[2020-03-14] MEDS ORDERED: IOHEXOL 300 MG/ML 75 ML VIAL. IV ONE (04:15)
[2020-03-14] MEDS ORDERED: CONTRAST GIVEN MC PRN (04:15)
--- NOTE | 2020-03-14 05:18 | RAD ---
CT lumbar spine with contrast. HISTORY: Low back pain with urinary incontinence CT scan of the lumbar spine was done using 75 mL Isovue-370 contrast. There is an incidental cyst in the right kidney. No further follow-up is warranted. There is no aneurysm or periaortic adenopathy noted. Lumbar spine is in normal alignment. There is no spondylolysis or spondylolisthesis. There is no spinal stenosis. There is mild bulging of disc at L4-5. There is no disc protrusion or spinal stenosis in the lumbar spinal canal. impression: 1. Mild bulging of disc at L4-5. 2. No spinal stenosis or foraminal stenosis noted. PQRS Compliance Statement: One or more of the following individualized dose reduction techniques were utilized for this examination: 1. Automated exposure control 2. Adjustment of the mA and/or kV according to patient size 3. Use of iterative reconstruction technique Electronically signed by: Gaudencio Tello MD (03/14/2020 5:15 AM) [id number]
[2020-03-14 05:25] LABS: BASO # 0.1 x10^3/uL (0.0-0.2); BASO % 1 % (0-3); EOS # 0.1 x10^3/uL (0.0-0.7); EOS % 2 % (0-3); HEMATOCRIT 51.2 % (39.0-53.0); HEMOGLOBIN 16.9 g/dL (13.0-17.5); LYMPH # 3.5 x10^3/uL (1.0-4.8); LYMPH % 43 % (24-48); MEAN CORPUSCULAR HEMOGLOBIN 26 pg (25-35); MEAN CORPUSCULAR HGB CONC 33 g/dL (31-37); MEAN CORPUSCULAR VOLUME 80 fL (79-100); MONO # 0.6 x10^3/uL (0.0-1.1); MONO % 7 % (0-9); NEUT # 3.9 x10^3uL (1.8-7.7); NEUT % 48 % (31-73); PLATELET COUNT 290 x10^3/uL (140-400); RED BLOOD COUNT 6.39 x10^6/uL (4.30-5.70); RED CELL DISTRIBUTION WIDTH 13.6 % (11.5-14.5); WHITE BLOOD COUNT 8.1 x10^3/uL (4.0-11.0)
[2020-03-14 05:38] LABS: ALBUMIN 3.9 g/dL (3.4-5.0); ALBUMIN/GLOBULIN RATIO 0.9 (1.0-1.7); CREATININE 1.2 mg/dL (0.7-1.3); GFR 88.6; POTASSIUM 3.4 mmol/L (3.5-5.1); TOTAL BILIRUBIN 0.3 mg/dL (0.2-1.0); TOTAL PROTEIN 8.3 g/dL (6.4-8.2)
[2020-03-14 05:45] VITALS: BP 129/88
[2020-03-14 05:51] LABS: BARBITURATES NEG (NEG); BENZODIAZEPINES NEG (NEG); CANNABINOIDS NEG (NEG); COCAINE NEG (NEG); METHADONE NEG (NEG); OPIATES POS (NEG); PHENCYCLIDINE NEG (NEG)
[2020-03-14 05:52] LABS: AMPHETAMINE/METHAMPHETAMINE NEG (NEG)
== END 2020-03-14 06:00 | disposition home or self-care (01) ==
LOC: ER 03:04
DX: M54.5 Low back pain (principal); G89.29 Other chronic pain; R32 Unspecified urinary incontinence; R39.15 Urgency of urination; M19.90 Unspecified osteoarthritis, unspecified site; Z86.2 Personal history of diseases of the blood and blood-forming organs and certain disorders involving the immune mechanism
CPT/HCPCS: 36415; 72132; 80053; 80307; 81001; 85025; 96374; 96375; 99285; J2270; J2405; Q9967

== ENCOUNTER 2020-06-01 01:26 | Emergency (ER) | payer OTHER ==
[~2020-06-01] VITALS: Ht 180.3 cm; Wt 140.0 kg
--- NOTE | 2020-06-01 01:44 | PHYS DOC ---
Past History Past Medical History: Arthritis, Sickle Cell Disease, Sciatica, Other Additional Past Medical Histor: chronic back pain; right testicle cyst; kidney cyst; DJD;Thalicemia Past Surgical History: Other Additional Past Surgical Histo: shyann ankle surgeries; wisdom teeth Smoking: Non-smoker Alcohol Use: None Drug Use: None General Adult EDM: Chief Complaint: MUSCLE SPASM/CRAMP HPI: HPI: the history was obtained from the patient. Patient is a 24-year-old male with PMH sickle cell trait, sarcoidosis, bilateral gynecomastia who presents with a chief complaint of body aches. Patient states he had body aches over the past 2 days. He states is aching in nature. He states his entire body hurts. He states this feels similar to previous sickle cell pain crises. He states that he has sickle cell trait but his java support engineer told him that it functions anemia and that he can have pain crises. He takes tramadol at home as needed. He states he is been in the hospital 1 other time for pain crises. Denies any history of acute chest syndrome. Does note some chest pain worse when he breathes in. Denies any fevers or cough. Denies syncope. He does not take hydroxyurea or folate daily. States he does not have a pain regimen. States that he is going back to [place] where he lives in 1 week. States his java support engineer is in the area though because he has left ear previously due to the [employer] appointment. He states reportedly that he has history of septic emboli. Denies any severe IV drug use or dialysis treatment. He cannot provide any further details regarding septic emboli diagnosis and treatment. No other complaints. Review of Systems: Review of Systems: Constitutional: Positive for subjective fevers and chills Eyes: Denies change in visual acuity HENT: Denies nasal congestion or sore throat Respiratory: Denies cough or shortness of breath Cardiovascular: Positive for chest pain GI: Denies abdominal pain, nausea, vomiting, bloody stools or diarrhea : Denies dysuria Musculoskeletal: Denies back pain or joint pain Integument: Denies rash Neurologic: Denies headache, focal weakness or sensory changes Endocrine: Denies polyuria or polydipsia Lymphatic: Denies swollen glands Psychiatric: Denies depression or anxiety Heart Score: Risk Factors: Risk Factors: DM, Current or recent (<one month) smoker, HTN, HLP, family history of CAD, obesity. Risk Scores: Score 0 - 3: 2.5% MACE over next 6 weeks - Discharge Home Score 4 - 6: 20.3% MACE over next 6 weeks - Admit for Clinical Observation Score 7 - 10: 72.7% MACE over next 6 weeks - Early Invasive Strategies Current Medications: Current Meds: Current Medications Medications (Trade) Dose Ordered Sig/Maddy Start Time Stop Time Status Last Admin Dose Admin Sodium Chloride 1,000 ml @ 1,000 mls/hr 1X ONCE 06/01/20 01:45 06/01/20 02:44 UNV Allergies: Allergies: Allergies Coded Allergies Type Severity Reaction Last Updated Verified No Known Drug Allergies 03/08/20 No Physical Exam: PE: Constitutional: Well developed, well nourished, no acute distress, non-toxic appearance. [] HENT: Normocephalic, atraumatic, bilateral external ears normal, oropharynx moist, no oral exudates, nose normal. [] Eyes: PERRLA, EOMI, conjunctiva normal, no discharge. [] Neck: Normal range of motion, no tenderness, supple, no stridor. [] Cardiovascular: Tachycardic, regular rhythm, no murmur [] Lungs & Thorax: Bilateral breath sounds clear to auscultation [] Abdomen: , soft, no tenderness, no masses, no pulsatile masses. [] Skin: Warm, dry, no erythema, no rash. [] Back: No tenderness, no CVA tenderness. [] Extremities: No tenderness, no cyanosis, no clubbing, ROM intact, no edema. [] Neurologic: Alert and oriented X 3, normal motor function, normal sensory function, no focal deficits noted. [] Psychologic: Affect normal, judgement normal, mood normal. [] Current Patient Data: Labs: Laboratory Tests Test 06/01/20 01:50 White Blood Count 5.3 x10^3/uL Red Blood Count 6.31 x10^6/uL Hemoglobin 16.3 g/dL Hematocrit 48.5 % Mean Corpuscular Volume 77 fL Mean Corpuscular Hemoglobin 26 pg Mean Corpuscular Hemoglobin Concent 34 g/dL Red Cell Distribution Width 13.4 % Platelet Count 275 x10^3/uL Neutrophils (%) (Auto) 37 % Lymphocytes (%) (Auto) 40 % Monocytes (%) (Auto) 11 % Eosinophils (%) (Auto) 11 % Basophils (%) (Auto) 1 % Neutrophils # (Auto) 2.0 x10^3uL Lymphocytes # (Auto) 2.1 x10^3/uL Monocytes # (Auto) 0.6 x10^3/uL Eosinophils # (Auto) 0.6 x10^3/uL Basophils # (Auto) 0.1 x10^3/uL Sodium Level 137 mmol/L Potassium Level 4.3 mmol/L Chloride Level 100 mmol/L Carbon Dioxide Level 26 mmol/L Anion Gap 11 Blood Urea Nitrogen 12 mg/dL Creatinine 1.4 mg/dL Estimated GFR (Cockcroft-Gault) 74.1 BUN/Creatinine Ratio 9 Glucose Level 100 mg/dL Calcium Level 9.6 mg/dL Total Bilirubin 0.7 mg/dL Aspartate Amino Transf (AST/SGOT) 70 U/L Alanine Aminotransferase (ALT/SGPT) 129 U/L Alkaline Phosphatase 201 U/L Creatine Kinase 138 U/L Troponin I Quantitative < 0.017 ng/mL OS-Ymg-B-Type Natriuretic Peptide < 5 pg/mL Total Protein 8.0 g/dL Albumin 3.7 g/dL Albumin/Globulin Ratio 0.9 Acetaminophen Level < 2.0 mcg/mL Acetaminophen Last Dose Date Unknown Acetaminophen Last Dose Time Unknown Current Medications Medications (Trade) Dose Ordered Sig/Maddy Route PRN Reason Start Time Stop Time Status Last Admin Dose Admin Sodium Chloride 1,000 ml @ 1,000 mls/hr 1X ONCE IV 06/01/20 02:00 06/01/20 02:59 DC 06/01/20 01:51 Fentanyl Citrate (Fentanyl 2ml Vial) 50 mcg 1X ONCE IVP 06/01/20 02:00 06/01/20 02:01 DC 06/01/20 02:01 Iohexol (Omnipaque 350 Mg/ml) 100 ml 1X ONCE IV 06/01/20 02:00 06/01/20 02:01 DC 06/01/20 02:40 Info (Do NOT chart on this entry -- for MONITORING) 1 each PRN DAILY PRN MC SEE COMMENTS 06/01/20 02:00 06/03/20 01:59 Ondansetron HCl (Zofran) 4 mg 1X ONCE IVP 06/01/20 03:30 06/01/20 03:32 DC 06/01/20 03:31 Vital Signs: Vital Signs Date Time Temp Pulse Resp B/P (MAP) Pulse Ox O2 Delivery O2 Flow Rate FiO2 06/01/20 02:01 22 96 Room Air 06/01/20 01:30 99.2 131 24 166/91 (116) 96 Room Air EKG: EKG: EKG consistent with sinus tachycardia. Ventricular rate of 125 bpm. Left axis noted. Intervals normal. Flipped T waves noted in lead III. No acute ischemic changes appreciated. [] Radiology/Procedures: Radiology/Procedures: [address] [address] IMAGING REPORT Signed PATIENT: LIBIA HUNTLEY ACCOUNT: [id number] : 1995 LOCATION: ER AGE: 24 SEX: M EXAM STATUS: REG ER ORD. PHYSICIAN: KASIE WALTON DO REASON: SOB. h/o sickel cell and reported septic emboli. LFT eleve PROCEDURE: CT ANGIOGRAPHY CHEST Examination: CT angiography chest. HISTORY: History of shortness of breath, septic emboli COMPARISON: None available Technique: Axial CT angiographic images of chest were performed with IV contrast and coronal sagittal 3-D MIP reformats are performed Exposure: One or more of the following individualized dose reduction techniques were utilized for this examination: 1. Automated exposure control 2. Adjustment of the mA and/or kV according to patient size 3. Use of iterative reconstruction technique FINDINGS: The visualized thyroid gland grossly appears unremarkable. The visualized heart size grossly appears unremarkable. The caliber of the aorta grossly appears unremarkable. There is no evidence of filling defect identified in the main pulmonary arterial trunk and right and left main pulmonary arteries and the visualized lobar and segmental branches of the pulmonary arteries. Faint minimal bibasilar lung airspace opacities. The liver, spleen, adrenals grossly appears unremarkable. No evidence of lytic bony destructive lesion. IMPRESSION: 1. No evidence of pulmonary embolism. 2. Minimal bibasilar lung atelectasis. Electronically signed by: Juan Miguel Elizabeth MD (06/01/2020 3:23 AM) [id number] DICTATED AND SIGNED BY: JUAN MIGUEL ELIZABETH MD DATE: 06/01/20 0323 CC: RUTHIE JONES DO; KASIE WALTON DO ~ [] Course & Med Decision Making: Course & Med Decision Making Pertinent Labs and Imaging studies reviewed. (See chart for details) [] Patient is a 24-year-old male who presents with chief complaint of diffuse body aches. He notes he has a history of sickle cell trait but not sickle cell disease. Initial vital signs notable for tachycardia with a heart rate of approximately 130. EKG consistent with sinus tachycardia. CBC was obtained and shows a hemoglobin of 16.3. Unfortunately our facility does not have the ability to obtain a reticulocyte count in real-time. However I do have low suspicion for aplastic crisis and splenic sequestration given his normal hemoglobin. Chemistry panel also shows slightly elevated liver enzymes. Patient states that he does have a history of this. Acetaminophen level negative. CK within normal limits. No leukocytosis present. CT imaging of the chest was obtained given the patient reported history of septic emboli. No signs of septic emboli or infiltrate. Patient's pain was well controlled. Repeat examination his heart rate still remains elevated. Patient states that his heart rate is always elevated. She is requesting discharge home. Overall I do feel this is reasonable. He states he will follow-up with his java support engineer in the next day or 2. Strict 12-24 return precautions were given. Has tolerated p.o. Stable for discharge home. Katlyn Disclaimer: Katlyn Disclaimer: This electronic medical record was generated, in whole or in part, using a voice recognition dictation system. Departure Departure: Impression: Primary Impression: Sickle cell trait Additional Impression: Transaminitis Disposition: HOME/RESIDENCE PRIOR TO ADM Condition: STABLE Referrals: RUTHIE JONES DO (PCP) Patient Instructions: Sickle Cell Pain Crisis Additional Instructions: Please follow-up with your java support engineer and primary care physician in the next 2 to 3 days. Please return the emergency department XL to 24 hours if her symptoms not improve or worsen. Scripts Ondansetron Hcl (ZOFRAN) 8 Mg Tablet 4 MG PO TID PRN PRN for NAUSEA, #9 TAB Prov: KASIE WALTON DO 06/01/20 Justification of Admission: Justification of Admission: Justification of Admission Dx: N/A KASIE WALTON DO Jun 01, 2020 01:44
[2020-06-01] MEDS ORDERED: CONTRAST GIVEN. MC PRN (02:00)
[2020-06-01] MEDS ORDERED: IV NORMAL SALINE 1,000ML 1,000 ML IV ONE (02:00)
[2020-06-01] MEDS ORDERED: IOHEXOL 350 MG/ML 100 ML VIAL. IV ONE (02:00)
[2020-06-01 02:21] LABS: BASO # 0.1 x10^3/uL (0.0-0.2); BASO % 1 % (0-3); EOS # 0.6 x10^3/uL (0.0-0.7); EOS % 11 % (0-3); HEMATOCRIT 48.5 % (39.0-53.0); HEMOGLOBIN 16.3 g/dL (13.0-17.5); LYMPH # 2.1 x10^3/uL (1.0-4.8); LYMPH % 40 % (24-48); MEAN CORPUSCULAR HEMOGLOBIN 26 pg (25-35); MEAN CORPUSCULAR HGB CONC 34 g/dL (31-37); MEAN CORPUSCULAR VOLUME 77 fL (79-100); MONO # 0.6 x10^3/uL (0.0-1.1); MONO % 11 % (0-9); NEUT % 37 % (31-73); PLATELET COUNT 275 x10^3/uL (140-400); RED BLOOD COUNT 6.31 x10^6/uL (4.30-5.70); RED CELL DISTRIBUTION WIDTH 13.4 % (11.5-14.5); WHITE BLOOD COUNT 5.3 x10^3/uL (4.0-11.0)
[2020-06-01 02:30] LABS: ANION GAP 11 (6-14); BLOOD UREA NITROGEN 12 mg/dL (8-26); BUN/CREATININE RATIO 9 (6-20); CALCIUM 9.6 mg/dL (8.5-10.1); CARBON DIOXIDE 26 mmol/L (21-32); CHLORIDE 100 mmol/L (98-107); CREATININE 1.4 mg/dL (0.7-1.3); GFR 74.1; GLUCOSE 100 mg/dL (70-99); POTASSIUM 4.3 mmol/L (3.5-5.1); SODIUM 137 mmol/L (136-145)
[2020-06-01 02:41] LABS: ALBUMIN 3.7 g/dL (3.4-5.0); ALBUMIN/GLOBULIN RATIO 0.9 (1.0-1.7); ALK PHOS 201 U/L (46-116); ALT (SGPT) 129 U/L (16-63); AST (SGOT) 70 U/L (15-37); TOTAL BILIRUBIN 0.7 mg/dL (0.2-1.0)
--- NOTE | 2020-06-01 03:26 | RAD ---
Examination: CT angiography chest. HISTORY: History of shortness of breath, septic emboli COMPARISON: None available Technique: Axial CT angiographic images of chest were performed with IV contrast and coronal sagittal 3-D MIP reformats are performed Exposure: One or more of the following individualized dose reduction techniques were utilized for this examination: 1. Automated exposure control 2. Adjustment of the mA and/or kV according to patient size 3. Use of iterative reconstruction technique FINDINGS: The visualized thyroid gland grossly appears unremarkable. The visualized heart size grossly appears unremarkable. The caliber of the aorta grossly appears unremarkable. There is no evidence of filling defect identified in the main pulmonary arterial trunk and right and left main pulmonary arteries and the visualized lobar and segmental branches of the pulmonary arteries. Faint minimal bibasilar lung airspace opacities. The liver, spleen, adrenals grossly appears unremarkable. No evidence of lytic bony destructive lesion. IMPRESSION: 1. No evidence of pulmonary embolism. 2. Minimal bibasilar lung atelectasis. Electronically signed by: Juan Miguel Elizabeth MD (06/01/2020 3:23 AM) [email or web address]
[2020-06-01] MEDS ORDERED: ONDANSETRON PF 4 MG/2 ML VIAL. IVP ONE (03:30)
--- NOTE | 2020-06-01 03:33 | RAD ---
EXAM: CHEST 1 VIEW History: Chest pain COMPARISON: None available. TECHNIQUE: Single portable radiograph of the chest FINDINGS: The cardiac silhouette is unremarkable. The lungs are clear bilaterally. The costophrenic sulci are clear and well demarcated. IMPRESSION: No radiographic evidence of an acute cardiopulmonary process. Electronically signed by: Juan Miguel Elizabeth MD (06/01/2020 3:30 AM) [id number]
[2020-06-01 03:37] LABS: ACETAMIN < 2.0 mcg/mL (10-30)
[2020-06-01 04:15] VITALS: BP 149/89
[2020-06-01] MEDS ORDERED: ONDA8TAB9 PO (04:19)
--- NOTE | 2020-06-01 05:09 | EKG ---
[facility] ED [facility] [place] [id number] Test Date: 2020-06-01 Test Time: 02:01:50 Pat Name: LIBIA HUNTLEY Department: Room: Gender: M Film And Video Editor: : 1995 Requested By: KASIE WALTON Order Number: [id number] Reading MD: Measurements Intervals [place] Rate: 125 P: 26 ID: [id number] QRS: -12 QRSD: 80 T: 23 QT: 288 QTc: 417 Interpretive Statements SINUS TACHYCARDIA LEFTWARD AXIS R-S TRANSITION ZONE IN V LEADS DISPLACED TO THE LEFT OTHERWISE NORMAL ECG RI6.02 No previous ECG available for comparison
== END 2020-06-01 04:17 | disposition home or self-care (01) ==
LOC: ER 01:26
DX: D57.3 Sickle-cell trait (principal); R74.0 Nonspecific elevation of levels of transaminase and lactic acid dehydrogenase [LDH]; M19.90 Unspecified osteoarthritis, unspecified site; G89.29 Other chronic pain
CPT/HCPCS: 36415; 71045; 71275; 80053; 80329; 82550; 83880; 84484; 85025; 85045; 93005; 96361; 96374; 96375; 96376; 99285; J2405; J3010; J7030; Q9967; G0480

== ENCOUNTER 2020-06-01 19:31 | Observation (INO) | payer OTHER ==
[~2020-06-01] VITALS: Ht 177.8 cm; Wt 134.1 kg
[~2020-06-01 19:31] MED LIST changes: +ONDA8TAB9 PO
[2020-06-01] MEDS ORDERED: IV NORMAL SALINE 1,000ML 1,000 ML IV ONE (19:45)
[2020-06-01] MEDS ORDERED: HYDROmorphone PF 1 MG/ML DISP.SYRIN IV ONE (19:45)
--- NOTE | 2020-06-01 19:55 | PHYS DOC ---
Past History Past Medical History: Arthritis, Sickle Cell Disease, Sciatica, Other Additional Past Medical Histor: chronic back pain;rt testicle cyst;kidney cyst;DJD;Thalicemia,septic emboli Past Surgical History: Other Additional Past Surgical Histo: shyann ankle surgeries; wisdom teeth Smoking: Non-smoker Alcohol Use: None Drug Use: None General Adult EDM: Chief Complaint: OTHER COMPLAINTS HPI: HPI: The history was obtained from the patient. Patient is a 24-year-old male with PMH sickle cell trait who presents with a chief complaint of nausea and generalized pain. Patient states he was seen in our facility yesterday. Per chart review the patient did have extensive work-up is grossly unremarkable. He states that his nausea has persisted throughout the day and he has not been able to fill the Zofran. He notes generalized pain. He states that shortness of breath seems to be somewhat worsening. He states it is worse with exertion. Denies history of blood clot in the legs or lungs. Denies any abdominal pain. States he has not had any vomiting or fevers since leaving the emergency department. He does follow with a hospital social worker at [facility]. He has not seen his physician. Denies any history of acute chest syndrome. Notes generalized fatigue. States he does not feel like he is getting any better. Denies chest pain or syncope. No other complaints. Review of Systems: Review of Systems: Constitutional: General weakness Eyes: Denies change in visual acuity HENT: Denies nasal congestion or sore throat Respiratory: Shortness of breath Cardiovascular: Denies chest pain or edema GI: D nausea : Denies dysuria Musculoskeletal: Myalgias Integument: Denies rash Neurologic: Denies headache, focal weakness or sensory changes Endocrine: Denies polyuria or polydipsia Lymphatic: Denies swollen glands Psychiatric: Denies depression or anxiety Heart Score: Risk Factors: Risk Factors: DM, Current or recent (<one month) smoker, HTN, HLP, family history of CAD, obesity. Risk Scores: Score 0 - 3: 2.5% MACE over next 6 weeks - Discharge Home Score 4 - 6: 20.3% MACE over next 6 weeks - Admit for Clinical Observation Score 7 - 10: 72.7% MACE over next 6 weeks - Early Invasive Strategies Current Medications: Current Meds: Current Medications Medications (Trade) Dose Ordered Sig/Maddy Start Time Stop Time Status Last Admin Dose Admin Hydromorphone HCl (Dilaudid) 1 mg 1X ONCE 06/01/20 19:45 06/01/20 19:46 DC Sodium Chloride 1,000 ml @ 1,000 mls/hr 1X ONCE 06/01/20 19:45 06/01/20 20:44 Allergies: Allergies: Allergies Coded Allergies Type Severity Reaction Last Updated Verified No Known Drug Allergies 03/08/20 No Physical Exam: PE: Constitutional: Well developed, well nourished, no acute distress, non-toxic appearance. [] HENT: Normocephalic, atraumatic, bilateral external ears normal, oropharynx m oist, no oral exudates, nose normal. [] Eyes: PERRLA, EOMI, conjunctiva normal, no discharge. [] Neck: Normal range of motion, no tenderness, supple, no stridor. [] Cardiovascular tachycardic, regular rhythm, no murmurs rubs or gallops noted. Lungs & Thorax: Bilateral breath sounds clear to auscultation [] Abdomen: Soft, nontender, nonacute abdomen. No involuntary guarding or rigidity noted. No acute peritonitis. Skin: Warm, dry, no erythema, no rash. [] Back: No tenderness, no CVA tenderness. [] Extremities: No tenderness, no cyanosis, no clubbing, ROM intact, no edema. [] Neurologic: Alert and oriented X 3, normal motor function, normal sensory function, no focal deficits noted. [] Psychologic: Affect normal, judgement normal, mood normal. [] Current Patient Data: Labs: Laboratory Tests Test 06/01/20 20:05 White Blood Count 4.7 x10^3/uL Red Blood Count 6.12 x10^6/uL Hemoglobin 15.5 g/dL Hematocrit 47.1 % Mean Corpuscular Volume 77 fL Mean Corpuscular Hemoglobin 25 pg Mean Corpuscular Hemoglobin Concent 33 g/dL Red Cell Distribution Width 13.6 % Platelet Count 274 x10^3/uL Neutrophils (%) (Auto) 42 % Lymphocytes (%) (Auto) 34 % Monocytes (%) (Auto) 13 % Eosinophils (%) (Auto) 10 % Basophils (%) (Auto) 2 % Neutrophils # (Auto) 2.0 x10^3uL Lymphocytes # (Auto) 1.6 x10^3/uL Monocytes # (Auto) 0.6 x10^3/uL Eosinophils # (Auto) 0.5 x10^3/uL Basophils # (Auto) 0.1 x10^3/uL Sodium Level 137 mmol/L Potassium Level 3.7 mmol/L Chloride Level 103 mmol/L Carbon Dioxide Level 23 mmol/L Anion Gap 11 Blood Urea Nitrogen 9 mg/dL Creatinine 1.1 mg/dL Estimated GFR (Cockcroft-Gault) 97.9 BUN/Creatinine Ratio 8 Glucose Level 95 mg/dL Lactic Acid Level 0.8 mmol/L Calcium Level 9.2 mg/dL Total Bilirubin 0.7 mg/dL Aspartate Amino Transf (AST/SGOT) 63 U/L Alanine Aminotransferase (ALT/SGPT) 128 U/L Alkaline Phosphatase 178 U/L Creatine Kinase 125 U/L Troponin I Quantitative < 0.017 ng/mL CW-Ypj-[id number]-Type Natriuretic Peptide 9 pg/mL Total Protein 7.9 g/dL Albumin 3.4 g/dL Albumin/Globulin Ratio 0.8 Lipase 133 U/L Current Medications Medications (Trade) Dose Ordered Sig/Maddy Route PRN Reason Start Time Stop Time Status Last Admin Dose Admin Sodium Chloride 1,000 ml @ 1,000 mls/hr 1X ONCE IV 06/01/20 19:45 06/01/20 20:44 DC 06/01/20 20:17 Hydromorphone HCl (Dilaudid) 1 mg 1X ONCE IV 06/01/20 19:45 06/01/20 19:46 DC 06/01/20 20:17 Ondansetron HCl (Zofran) 4 mg 1X ONCE IVP 06/01/20 20:00 06/01/20 20:05 DC 06/01/20 20:16 Ondansetron HCl (Zofran) 4 mg STK-MED ONCE .ROUTE 06/01/20 20:02 06/01/20 20:05 DC Vital Signs: Vital Signs Date Time Temp Pulse Resp B/P (MAP) Pulse Ox O2 Delivery O2 Flow Rate FiO2 06/01/20 20:17 18 98 Room Air EKG: EKG: [] EKG consistent with sinus tachycardia. Ventricular rate of 101 bpm. [place] normal. Flipped T waves noted in lead III. No acute ischemic changes appreciated. Overall similar to EKG from yesterday. Radiology/Procedures: Radiology/Procedures: [address] [address] IMAGING REPORT Signed PATIENT: LIBIA HUNTLEY ACCOUNT: [id number] : 1995 LOCATION: ER AGE: 24 SEX: M EXAM STATUS: REG ER ORD. PHYSICIAN: KASIE WALTON DO REASON: RUQ abdominal pain. elevated LFT"s PROCEDURE: ABDOMEN LTD ABDOMEN LTD History: Reason: RUQ abdominal pain. elevated LFT"s / Spl. Instructions: / History: Comparison: None. Technique: Transabdominal ultrasound images are obtained of the right upper quadrant. Findings: Visualized pancreas is unremarkable. Liver is increased in echogenicity. Right hepatic lobe measures 15.7 cm. Portal flow is hepatopedal. The bladder sludge. No gallbladder wall thickening. No pericholecystic fluid. Common bile duct measures 5 mm in diameter. The right kidney measures 11.7 x 6.3 x 4.7 cm. No hydronephrosis. Visualized portions of the aorta and IVC have normal caliber. IMPRESSION: 1. Gallbladder sludge. If persistent clinical concern, HIDA scan can better evaluate gallbladder function. 2. Increased hepatic echotexture, may indicate steatosis. Electronically signed by: Reginaldo Madrid DO (06/01/2020 9:54 PM) [facility] DICTATED AND SIGNED BY: REGINALDO MADRID DO DATE: 06/01/20 2154 CC: RUTHIE JONES DO; KASIE WALTON DO ~ [] Course & Med Decision Making: Course & Med Decision Making Pertinent Labs and Imaging studies reviewed. (See chart for details) [] Patient is a 24-year-old male who presents with chief complaint of generalized body aches, increasing shortness of breath. Initial vital signs grossly markable. Mild tachycardia. Examination unremarkable. Chart review was performed and patient was seen in our emergency department yesterday. Hemoglobin stable from yesterday's lab draw. His reticulocyte count from yesterday is not consistent with aplastic anemia or splenic sequestration. He does have elevated liver enzymes. Right upper quadrant ultrasound was obtained today and shows biliary and gallbladder sludge. No signs of acute cholecystitis. CBC without leukocytosis. CT imaging from yesterday was obtained shows no signs of pulmonary embolism or infiltrate. Remainder of work- up unremarkable. On repeat examination patient states he is still quite uncomfortable. He does have injected conjunctive a bilaterally. I am suspicious he could be experiencing early coronavirus. Patient was swabbed and results are pending. Overall given the patient's repeat visit and continued discomfort I do feel he would benefit from hospitalization. Patient is agreeable to this. COVID-19 CRITERIA: The patient was evaluated during the global COVID-19 pandemic, and that diagnosis was suspected/considered upon their initial presentation. Their evaluation, treatment and testing was consistent with current guidelines for patients who present with complaints or symptoms that may be related to COVID-19. Dragon Disclaimer: Dragon Disclaimer: This electronic medical record was generated, in whole or in part, using a voice recognition dictation system. Departure Departure: Impression: Primary Impression: Sickle cell anemia with pain Additional Impressions: Suspected COVID-19 virus infection Transaminitis Disposition: ADMITTED INPATIENT Condition: STABLE Referrals: RUTHIE JONES DO (PCP) Justification of Admission: Justification of Admission: Justification of Admission Dx: Yes Comments: sickle cell pain crisis, covid suscpected KASIE WALTON DO Jun 01, 2020 19:55
[2020-06-01] MEDS ORDERED: ONDANSETRON PF 4 MG/2 ML VIAL. IVP ONE (20:00)
[2020-06-01] MEDS ORDERED: ONDANSETRON PF 4 MG/2 ML VIAL. ONE (20:02)
[2020-06-01 20:54] LABS: BASO # 0.1 x10^3/uL (0.0-0.2); BASO % 2 % (0-3); EOS # 0.5 x10^3/uL (0.0-0.7); EOS % 10 % (0-3); HEMATOCRIT 47.1 % (39.0-53.0); HEMOGLOBIN 15.5 g/dL (13.0-17.5); LYMPH # 1.6 x10^3/uL (1.0-4.8); LYMPH % 34 % (24-48); MEAN CORPUSCULAR HEMOGLOBIN 25 pg (25-35); MEAN CORPUSCULAR HGB CONC 33 g/dL (31-37); MEAN CORPUSCULAR VOLUME 77 fL (79-100); MONO # 0.6 x10^3/uL (0.0-1.1); MONO % 13 % (0-9); NEUT % 42 % (31-73); PLATELET COUNT 274 x10^3/uL (140-400); RED BLOOD COUNT 6.12 x10^6/uL (4.30-5.70); RED CELL DISTRIBUTION WIDTH 13.6 % (11.5-14.5); WHITE BLOOD COUNT 4.7 x10^3/uL (4.0-11.0)
[2020-06-01 20:57] LABS: CALCIUM 9.2 mg/dL (8.5-10.1); CREATININE 1.1 mg/dL (0.7-1.3); GFR 97.9; POTASSIUM 3.7 mmol/L (3.5-5.1)
[2020-06-01 21:10] LABS: ALBUMIN 3.4 g/dL (3.4-5.0); ALBUMIN/GLOBULIN RATIO 0.8 (1.0-1.7); TOTAL BILIRUBIN 0.7 mg/dL (0.2-1.0); TOTAL PROTEIN 7.9 g/dL (6.4-8.2)
--- NOTE | 2020-06-01 21:56 | RAD ---
ABDOMEN LTD History: Reason: RUQ abdominal pain. elevated LFT"s / Spl. Instructions: / History: Comparison: None. Technique: Transabdominal ultrasound images are obtained of the right upper quadrant. Findings: Visualized pancreas is unremarkable. Liver is increased in echogenicity. Right hepatic lobe measures 15.7 cm. Portal flow is hepatopedal. The bladder sludge. No gallbladder wall thickening. No pericholecystic fluid. Common bile duct measures 5 mm in diameter. The right kidney measures 11.7 x 6.3 x 4.7 cm. No hydronephrosis. Visualized portions of the aorta and IVC have normal caliber. IMPRESSION: 1. Gallbladder sludge. If persistent clinical concern, HIDA scan can better evaluate gallbladder function. 2. Increased hepatic echotexture, may indicate steatosis. Electronically signed by: Reginaldo Madrid DO (06/01/2020 9:54 PM) [facility]
[2020-06-01] MEDS ORDERED: ONDANSETRON PF 4 MG/2 ML VIAL. IVP PRN (22:15)
[2020-06-01] MEDS ORDERED: HYDROcodone/APAP 10/325 1 TAB TABLET PO ONE (22:45)
--- NOTE | 2020-06-01 23:45 | NUR ---
Admit Note: Pt transported via EMS from ED to room 123, pt ambulated from cart to bed independently, steady gait observed, VSS, cont. c/o of generalized pain (meds given in ED), no further c/o nausea (zofran given in ED), pt oriented to room/hospital/call light/ hospital routines, discussed POC w/pt regarding pain management, will continue to monitor.
[2020-06-01 23:58] VITALS: BP 141/104
[2020-06-01] MEDS: MORPHINE SULFATE 4 MG/ML DISP.SYRIN. IVP PRN (23:59)
--- NOTE | 2020-06-02 00:35 | NUR ---
Per patient he is from [place] and just here visiting. He is scheduled for a lymph node biopsy on 06/09/20 back in [place] d/t new bilateral gynecomastia, raised tattoos, red swollen eyes.
[2020-06-02] MEDS: MORPHINE SULFATE 4 MG/ML DISP.SYRIN. IVP PRN ×4 (02:55→10:36)
[2020-06-02 06:18] LABS: BASO # 0.1 x10^3/uL (0.0-0.2); BASO % 1 % (0-3); EOS # 0.6 x10^3/uL (0.0-0.7); EOS % 13 % (0-3); HEMATOCRIT 44.8 % (39.0-53.0); HEMOGLOBIN 14.8 g/dL (13.0-17.5); LYMPH # 1.6 x10^3/uL (1.0-4.8); LYMPH % 34 % (24-48); MEAN CORPUSCULAR HEMOGLOBIN 26 pg (25-35); MEAN CORPUSCULAR HGB CONC 33 g/dL (31-37); MEAN CORPUSCULAR VOLUME 77 fL (79-100); MONO # 0.4 x10^3/uL (0.0-1.1); MONO % 9 % (0-9); NEUT % 44 % (31-73); PLATELET COUNT 246 x10^3/uL (140-400); RED BLOOD COUNT 5.79 x10^6/uL (4.30-5.70); RED CELL DISTRIBUTION WIDTH 13.4 % (11.5-14.5); WHITE BLOOD COUNT 4.7 x10^3/uL (4.0-11.0)
[2020-06-02 06:21] VITALS: BP 139/77
[2020-06-02 06:28] LABS: CALCIUM 8.7 mg/dL (8.5-10.1); CREATININE 1.1 mg/dL (0.7-1.3); GFR 97.9; POTASSIUM 3.7 mmol/L (3.5-5.1)
--- NOTE | 2020-06-02 09:28 | NUR ---
IP: patient PUI for COVID-19, requires contact and airborne precautions.
[2020-06-02] MEDS ORDERED: CETIRIZINE HCL 10 MG TABLET PO ONE (10:15)
[2020-06-02] MEDS ORDERED: PSEUDOEPHEDRINE ER 120 MG TABLET.ER. PO ONE (10:15)
--- NOTE | 2020-06-02 10:38 | HP ---
ADMIT DATE: 06/02/2020 ATTENDING PHYSICIAN: Dr. Moss. CHIEF COMPLAINT: "I hurt all over." HISTORY OF PRESENT ILLNESS: The patient is a 24-year-old gentleman admitted through the ED with myalgias. He has had nausea, most likely viral syndrome. He does not have COVID symptoms. However, he was swabbed yesterday, that is still pending. He has a longstanding history of sickle cell trait, but his hemoglobin is maintained at 14.6 gram. He also has thalassemia, chronic pain, testicular cyst and sciatica. CURRENT MEDICATIONS: Include Ultram, which seems to help; occasional hydrocodone. SOCIAL HISTORY: He is a nonsmoker, nondrinker. He has had recent travel from [place] to visit his mom here in [place]. ALLERGIES: He has no known drug allergies. PAST MEDICAL AND SURGICAL HISTORY: Includes ankle fractures and wisdom teeth. REVIEW OF SYSTEMS: SIGNIFICANT FOR RUNNY NOSE, SINUS CONGESTION, ITCHY EYES, ALL RELATED TO RAGWEED POLLEN ALLERGY. The rest of detailed review of systems was considered to be deemed noncontributory. PHYSICAL EXAMINATION: GENERAL: When I saw him, this is a well-developed young male. INITIAL VITAL SIGNS: Showed a blood pressure of 139/77, temperature 98.5 degrees Fahrenheit, pulse regular and oxygen saturation 98% on room air. HEENT: Head is without trauma. Pupils are reactive. Sclerae nonicteric. Oropharynx clear. NECK: Supple, no bruits. LUNGS: Clear. CARDIOVASCULAR: Regular heart tones. No gallops. ABDOMEN: Soft, no guarding or rebound tenderness. Normal bowel sounds. EXTREMITIES: Showed no cyanosis or edema. NEUROLOGIC: Focally intact. SKIN: Warm and dry. Ultrasound of the abdomen showed some gallbladder sludge, no acute cholecystitis, increased hepatic echogenicity consistent with steatosis. LABORATORY DATA: Hemoglobin is 15.5 g/dL, white count 4700. Chemistry panel, normal BUN and creatinine and electrolytes. Cardiac enzymes negative for ischemia. Nonfasting blood sugar 108. ASSESSMENT: 1. A 24-year-old gentleman with myalgia. 2. Probable viral syndrome, non-COVID in nature. 3. History of sickle cell trait. 4. History of thalassemia. 5. Chronic myalgias and pain syndrome. PLAN: 1. Observation status. 2. COVID-19 swab. 3. Continue Ultram for pain. 4. Diet as tolerated. BRAIN MOSS MD DR: PIOTR/zarina JOB#: [id number] / [id number]
--- NOTE | 2020-06-02 10:43 | NUR ---
patient is discharged home with self care. patient is stable at time of discharge. patients iv is removed anisa has all belongings with self at time of discharge and is given all discharge and follow up teaching.
--- NOTE | 2020-06-02 11:14 | DS ---
DATE OF DISCHARGE: 06/02/2020 ATTENDING PHYSICIAN: Dr. Moss. FINAL DISCHARGE DIAGNOSES: 1. Myalgias, resolved. 2. Allergic rhinitis. 3. Chronic pain syndrome. 4. History of sickle cell trait. HISTORY AND PHYSICAL: This is a healthy 24-year-old gentleman is here from [place] visiting his mom who presented with myalgias. He is concerned that he had sickle cell crisis. In reality, he just wanted some pain relief and had not been getting enough pain medication from his primary care doctor. He has seen a trade marker in the past. He is getting actively worked up for sarcoidosis at his primary care physician in [place]. He is on his way home in a few days. His mother lives here in [place]. PHYSICAL EXAMINATION: Please see the dictated note. PERTINENT LABORATORY AND X-RAY STUDIES: His hemoglobin is normal at 15.5 grams per deciliter, white count 4700 with a normal differential. Chemistry shows stable BUN and creatinine, electrolytes. Nonfasting blood sugar 108. Cardiac enzymes negative for coronary ischemia. Transaminases slightly elevated. Bilirubin is normal. Ultrasound of the abdomen showed some gallbladder sludge and hepatic steatosis. No obstruction or lesions identified. COURSE IN THE HOSPITAL: The patient was admitted overnight for pain management. He tolerated oral liquids and foods. He did not appear dehydrated. He was better the next day. He wants to go home in the process of flying back to [place]. He will follow up with his regular physician. I did give him a script for Ultram 100 mg p.o. q. 6 hours p.r.n. pain. The patient was recommended to take some [id number] Claritin-D for sinus congestion. He was discharged then in stable condition with explicit instructions and followup care. BRAIN MOSS MD DR: PIOTR/zarina JOB#: [id number] / [id number]
--- NOTE | 2020-06-03 07:27 | EKG ---
[address] [address] Test Date: 2020-06-01 Test Time: 20:00:39 Pat Name: LIBIA HUNTLEY Department: Room: Gender: M Rolling Machine Operator: : [id number] Requested By: KASIE WALTON Order Number: [id number] Reading MD: Measurements Intervals [place] Rate: 101 P: 28 LA: 158 QRS: 12 QRSD: 82 T: 24 QT: 332 QTc: 431 Interpretive Statements SINUS TACHYCARDIA OTHERWISE NORMAL ECG RI6.02 No previous ECG available for comparison
--- NOTE | 2020-06-04 14:06 | NUR ---
IP: notified patient of COVID result.
== END 2020-06-02 10:43 | disposition home or self-care (01) ==
LOC: ER 19:31 → INTOOBSV 23:08 → 1 SOUTH 23:08
PROVIDERS: ADMIT Internal Medicine; ATTEND Internal Medicine
DX: M79.10 Myalgia, unspecified site (principal); Z20.828 Contact with and (suspected) exposure to other viral communicable diseases; D57.3 Sickle-cell trait; D56.9 Thalassemia, unspecified; M54.30 Sciatica, unspecified side; M19.90 Unspecified osteoarthritis, unspecified site; G89.4 Chronic pain syndrome; R74.0 Nonspecific elevation of levels of transaminase and lactic acid dehydrogenase [LDH]; N44.2 Benign cyst of testis; K82.8 Other specified diseases of gallbladder; Z98.890 Other specified postprocedural states
CPT/HCPCS: 36415; 76705; 80048; 80053; 82550; 83605; 83690; 83880; 84484; 85025; 87040; 93005; 96361; 96374; 96375; 96376; 99285; G0378; J1170; J2270; J2405; J7030; U0003; G0379